=== PATIENT | female | born 1995 | race African-American/Black ===

== ENCOUNTER 2016-12-02 09:53 | Emergency (ER) | payer MEDICAID ==
[2016-12-02 10:07] VITALS: BP 127/80
--- NOTE | 2016-12-02 11:04 | EDM.PDOC ---
ED HPI GENERAL MEDICAL PROBLEM - General Chief Complaint: General Stated Complaint: LOW BACK PAIN Time Seen by Provider: 12/02/16 10:54 Source of Information: Reports: Patient History Limitations: Reports: No Limitations - History of Present Illness INITIAL COMMENTS - FREE TEXT/NARRATIVE: 21-year-old female presents for evaluation and treatment of lower abdominal cramping into the low back. Reports that she first noticed the symptoms about 3 days ago. She reports associated symptoms of increased urination. She denies any fevers, nausea, vomiting, dysuria or vaginal bleeding. Last menstrual period was October 23. She is a . Duration: Day(s): (3) Location: Reports: Abdomen (lower abdomen), Back (lower back) Lower Back Pain Score (Numeric/FACES): 3 - Related Data Allergies Allergy/AdvReac Type Severity Reaction Status Date / Time No Known Allergies Allergy Verified 12/02/16 10:07 Home Meds: Home Meds Amoxicillin 875 mg PO BID #14 tab 12/02/16 [Rx] Past Medical History - Past Health History Medical/Surgical History: Denies Medical/Surgical History Social & Family History - Tobacco Use Smoking Status *Q: Never Smoker - Caffeine Use Caffeine Use: Reports: None - Recreational Drug Use Recreational Drug Use: No ED ROS GENERAL - Review of Systems Review Of Systems: See Below Constitutional: Denies: Fever GI/Abdominal: Reports: Abdominal Pain (lower abdomen cramping). Denies: Nausea , Vomiting : Reports: Frequency, Other (LMP October 23; no vaginal bleeding). Denies: Dysuria Musculoskeletal: Reports: Back Pain (lower back) ED EXAM, GENERAL - Physical Exam Exam: See Below Exam Limited By: No Limitations General Appearance: Alert, WD/WN, No Apparent Distress Respiratory/Chest: No Respiratory Distress Neurological: Alert, Oriented, Normal Cognition Psychiatric: Normal Affect, Normal Mood Skin Exam: Warm, Dry, Normal Color Course - Vital Signs Last Recorded V/S: Last Vital Signs Temp 36.6 C 12/02/16 10:04 Pulse 100 12/02/16 10:04 Resp 16 12/02/16 10:04 BP 127/80 12/02/16 10:04 Pulse Ox 100 12/02/16 10:04 - Orders/Labs/Meds Orders: Active Orders 24 hr Category Date Time Status CULTURE URINE [RM] Stat Lab 12/02/16 11:08 Ordered HCG QUANTITATIVE,SERUM [CHEM] Stat Lab 12/02/16 11:13 Ordered Labs: Laboratory Tests 12/02/16 12/02/16 Range/Units 10:15 10:15 Urine Color Yellow (Yellow) Urine Appearance Slt cloudy H (Clear) Urine pH 6.0 (5.0-8.0) Ur Specific [place] > or = 1.030 (1.005-1.030) Urine Protein 1+ H (Negative) Urine Glucose (UA) Negative (Negative) Urine Ketones Negative (Negative) Urine Occult Blood Negative (Negative) Urine Nitrite Positive H (Negative) Urine Bilirubin Negative (Negative) Urine Urobilinogen 1.0 (0.2-1.0) Ur Leukocyte Esterase 1+ H (Negative) Urine RBC 0-5 (0-5) /hpf Urine WBC 10-20 H (0-5) /hpf Ur Epithelial Cells 5-10 H (0-5) /hpf Urine Bacteria Many H (FEW) /hpf Urine Mucus Few (FEW) /hpf Urine Yeast (Budding) Few H (NOT SEEN) Urine HCG, Qual Positive (NEGATIVE) - Re-Assessments/Exams Free Text/Narrative Re-Assessment/Exam: 12/02/16 11:15 UA has returned with 1+ protein, positive nitrites, leukocytes and many bacteria seen on microscopy. HCG returned positive. I Reviewed the lab results with the patient. Given her last menstrual period was October 23 this puts her due date of 07/30/17; she is a proximally 6 weeks . We decided to go ahead and get an hCG quantitative. Early OB ultrasound to be done outpatient, order placed. She can follow-up with her CASE SUPERVISOR for results of the ultrasound and the quant. Discharge instructions as documented. Departure - Departure Time of Disposition: 11:22 Disposition: Home, Self-Care 01 Condition: Good Clinical Impression: UTI, Urinary tract infectious disease, - Discharge Information Prescriptions: Amoxicillin 875 mg PO BID #14 tab Instructions: First Trimester of , [id number], Care, Urinary Tract Infection, Adult, [id number] Referrals: PCP,None [Primary Care Provider] - Ernesto Garland MD [Physician] - Forms: ED Department Discharge Additional Instructions: take the amoxicillin as prescribed. 1 tab PO bid x 7 days. Take with food. Take [id number] Tylenol as needed for pain relief. Avoid NSAIDs such as ibuprofen, Aleve, aspirin when you're . Call [phone] to schedule your early OB ultrasound. Pleats let them know which CASE SUPERVISOR provider you would like to see so they can send the ultrasound results to them. Follow-up with OB for recheck of your urinary tract infection and for an early OB appointment. Recommend Dr. Garland. Please call [phone] to schedule with him. Recommend starting a vitamin. Please return to the ER if your symptoms change or worsen. - My Orders Last 24 Hours: My Active Orders 12/02/16 11:08 CULTURE URINE [RM] Stat 12/02/16 11:13 HCG QUANTITATIVE,SERUM [CHEM] Stat - Assessment/Plan Last 24 Hours: My Active Orders 12/02/16 11:08 CULTURE URINE [RM] Stat 12/02/16 11:13 HCG QUANTITATIVE,SERUM [CHEM] Stat
== END 2016-12-02 11:35 | disposition home or self-care (01) ==
LOC: JD.ED 09:53
DX: O23.41 Unspecified infection of urinary tract in pregnancy, first trimester (principal); Z3A.01 Less than 8 weeks gestation of pregnancy
CPT/HCPCS: 36415; 81001; 81025; 84702; 87086; 87088; 87186; 99283

== ENCOUNTER 2017-01-06 19:01 | Emergency (ER) | payer MEDICAID ==
[2017-01-06 19:15] VITALS: BP 120/84
--- NOTE | 2017-01-06 20:13 | EDM.PDOC ---
ED HPI GENERAL MEDICAL PROBLEM - General Chief Complaint: Back Pain or Injury Stated Complaint: LEFT BUTTOCKS HURT/NUMBNESS DOWN LEFT LEG Time Seen by Provider: 01/06/17 19:19 Source of Information: Reports: Patient, RN Notes Reviewed - History of Present Illness INITIAL COMMENTS - FREE TEXT/NARRATIVE: 21-year-old female comes in with left low back pain. This started last evening. She was just sitting watching TV, got up to go to the bathroom and had fairly sudden onset of left low back pain with radiation down the back part of her left lower extremity. SHe continues to have discomfort at times quite severe with occasional radiation down the back side of her leg as well. She's never had anything of this nature before. She is about 11 weeks . That has all been going well for her. She did have prior nausea and vomiting but that is now better. She does have voiding frequency but no voiding dysuria. No recent fever or chills. 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 Denies: Dysuria Musculoskeletal: Reports: Back Pain (Left low back) Skin: Reports: No Symptoms Neurological: Reports: Numbness, Difficulty Walking (Mild, she does have increased discomfort with certain types of motion). Denies: Weakness ED EXAM,LOWER BACK PAIN/INJURY - Physical Exam Exam: See Below General Appearance: Alert, Mild Distress Eye Exam: Bilateral Eye: PERRL Throat/Mouth: Normal Inspection, Normal Oropharynx Head: Atraumatic Neck: Supple, Full Range of Motion Respiratory/Chest: No Respiratory Distress, Lungs Clear, Normal Breath Sounds Cardiovascular: Regular Rate, Rhythm GI/Abdominal: Soft, Non-Tender. No: Guarding Back Exam: Paraspinal Tenderness (Mild tenderness left low back). No: Muscle Spasm, Vertebral Tenderness Extremities: Normal Inspection, Other (Mild pain with straight leg raising left lower extremity). No: Leg Pain Neurological: Alert, Normal Mood/Affect, No Motor/Sensory Deficits, Oriented x 3 Skin Exam: Warm, Dry, Normal Color Course - Vital Signs Last Recorded V/S: Last Vital Signs Temp 97.9 F 01/06/17 19:12 Pulse 93 01/06/17 19:12 Resp 18 01/06/17 19:12 BP 120/84 01/06/17 19:12 Pulse Ox 100 01/06/17 19:12 - Orders/Labs/Meds Orders: Active Orders 24 hr Category Date Time Status CULTURE URINE [RM] Stat Lab 01/06/17 20:32 Received Labs: Laboratory Tests 01/06/17 Range/Units 20:50 Urine Color Yellow (Yellow) Urine Appearance Clear (Clear) Urine pH 6.5 (5.0-8.0) Ur Specific [place] 1.025 (1.005-1.030) Urine Protein Negative (Negative) Urine Glucose (UA) Negative (Negative) Urine Ketones 2+ H (Negative) Urine Occult Blood Negative (Negative) Urine Nitrite Negative (Negative) Urine Bilirubin Negative (Negative) Urine Urobilinogen 1.0 (0.2-1.0) Ur Leukocyte Esterase 1+ H (Negative) Urine RBC 0-5 (0-5) /hpf Urine WBC 0-5 (0-5) /hpf Ur Epithelial Cells 0-5 (0-5) /hpf Urine Bacteria Few (FEW) /hpf Urine Mucus Moderate H (FEW) /hpf Meds: Medications Discontinued Medications Generic Name Dose Route Start Last Admin Trade Name Freq PRN Reason Stop Dose Admin Acetaminophen 650 mg 01/06/17 21:04 01/06/17 21:09 Tylenol PO 01/06/17 21:05 650 mg NOW ONE Administration - Re-Assessments/Exams Free Text/Narrative Re-Assessment/Exam: 01/06/17 21:17 UA is 1+ positive for leukocytes but microscopically does not show UTI. Will check a urine culture. We'll not start on antibiotics at this time. We have discussed alternating ice and heat, Tylenol 500 mg 2-3 times daily, consider physical therapy if not much better within the next 12-24 hours. Departure - Departure Time of Disposition: 21:13 Disposition: Home, Self-Care 01 Condition: Fair Clinical Impression: First trimester Back pain Qualifiers: Back pain location: low back pain Chronicity: acute Back pain laterality: left Sciatica presence: with sciatica Sciatica laterality: sciatica of left side Qualified Code(s): M54.42 - Lumbago with sciatica, left side - Discharge Information Referrals: PCP,None [Primary Care Provider] - Forms: ED Department Discharge Additional Instructions: Rest back, no heavy lifting, alternate ice and heat symptomatic relief, you may safely take Tylenol 500 mg 2-3 times daily to help take the edge off of your back discomfort. Start physical therapy if not getting much better over the next 1-2 days. Folow up clinic if symptoms not resolving by early next week. Urine Culture has been done. If that does show bladder infection you will be notified and started on an appropriate antibiotic. Return to ED if symptoms worsening in any way. - My Orders Last 24 Hours: My Active Orders 01/06/17 20:32 CULTURE URINE [RM] Stat - Assessment/Plan Last 24 Hours: My Active Orders 01/06/17 20:32 CULTURE URINE [RM] Stat
[2017-01-06] MEDS ORDERED: Acetaminophen 325 MG Tab PO ONE (21:04)
== END 2017-01-06 21:31 | disposition home or self-care (01) ==
LOC: JD.ED 19:01
DX: O99.89 Other specified diseases and conditions complicating pregnancy, childbirth and the puerperium (principal); M54.42 Lumbago with sciatica, left side; Z3A.11 11 weeks gestation of pregnancy
CPT/HCPCS: 81001; 87086; 99283; A9270

== ENCOUNTER 2017-07-26 03:42 | Inpatient (IN) | payer MEDICAID ==
[2017-07-26] MEDS ORDERED: Misoprostol 25 MCG (1/4 of 100 MCG) Tab ONE (07:20)
[2017-07-26] MEDS ORDERED: Acetaminophen 325 MG Tab PO PRN (07:41)
[2017-07-26] MEDS ORDERED: Sodium Chloride 0.9% 10 ML Syringe FLUSH PRN (07:41)
[2017-07-26] MEDS ORDERED: Ondansetron 4 MG/2 ML SDV IVPUSH PRN (07:41)
[2017-07-26] MEDS ORDERED: Lactated Ringers 1,000 ML IV SCH (07:45)
[2017-07-26] MEDS ORDERED: Misoprostol 100 MCG Tab VAG PRN (07:45)
[2017-07-26] MEDS ORDERED: Oxytocin/Lactated Ringers 10 UNIT/1,000 ML BAG IV SCH ×2 (07:45→14:30)
--- NOTE | 2017-07-26 07:53 | PCM.LDHP ---
L&D History of Present Illness - General Date of Service: 07/26/17 Admit Problem/Dx: Patient Status Order with Admit Dx/Problem 07/26/17 07:41 Patient Status [ADT] Routine Admission Diagnosis/Problem Admission Diagnosis/Problem 39 weeks gestation of Source of Information: Patient History Limitations: Reports: No Limitations - History of Present Illness Introduction:: Pooja Barreto is a 21 year old at 39 weeks 3 days by LMP consistent with 6 week ultrasound. She is scheduled for elective induction of labor today , 07/26/2017, per patient request. She reports that she has had some occasional contractions since her last visit on 07/22/2017 and that several of them were stronger than usual but not regular. Reports good movement. Denies any leaking of fluid or vaginal bleeding. Timing/Duration: Reports: intermittent Location, : Reports: Abdomen, Lower back Quality: Reports: Ache, Pressure Severity: Mild Improves with: Reports: None Worsens with: Reports: None Associated Symptoms: Denies: vaginal bleeding, vaginal discharge, vaginal fluid Present Illness Comments:: Pooja Barreto is a 21 year old at 39 weeks 3 days by LMP consistent with 6 week ultrasound. She has had regular care since 6 weeks [address] Guthrie. Her labs show that she has O+ blood type with negative antibody screen. Her initial hemoglobin on 12/16/2016 was 9.0 and a hematocrit of 29.5 and platelets were 387. She is rubella immune. She is RPR negative, hepatitis B surface antigen negative and HIV negative. Her urine was positive for GBS bacteriuria on 05/03/2017. Her hemoglobin electrophoresis was normal. Her anatomy ultrasound on 04/08/2017 was normal with an anterior placenta. Her one-hour glucose test was normal at 127. Her repeat hematocrit and hemoglobin on 05/12/2017 showed hemoglobin of 10.7 and hematocrit of 31.3. Her platelets were 220. Overall her was uncomplicated but she did have positive GBS bacteriuria, anemia and nausea and vomiting in . 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 Para: 0 Social & Family History - Tobacco Use Smoking Status *Q: Never Smoker Second Hand Smoke Exposure: No - Tobacco Core Measures Tobacco Use/Smoking Within Last 30 Days: No - Caffeine Use Caffeine Use: Reports: None - Alcohol Use Alcohol Use History: No - Recreational Drug Use Recreational Drug Use: No H&P Review of Systems - Review of Systems: Review Of Systems: See Below General: Denies: Fever, Chills, Weakness, Fatigue HEENT: Denies: Eye Pain, Headaches, Hearing Changes, Rhinitis, Post Nasal Drip, Sinus Congestion, Sore Throat, Visual Changes Pulmonary: Denies: Shortness of Breath, Wheezing Cardiovascular: Denies: Chest Pain, Palpitations Gastrointestinal: Denies: Abdominal Pain, Constipation, Diarrhea, Nausea, Vomiting Genitourinary: Denies: Dysuria, Frequency, Burning, Pain, Urgency Musculoskeletal: Reports: Back Pain. Denies: Joint Pain, Muscle Pain Skin: Denies: Rash Psychiatric: Denies: Confusion, Depression, Anxiety Neurological: Denies: Headache Hematologic/Lymphatic: Reports: Anemia L&D Exam - Exam Exam: See Below - OB Specific Contraction Duration (sec): 30-45 Contraction Frequency (min): 10 Contraction Intensity: Mild Movement: Active Heart Tones: Present Heart Tones per Min: 130 (positive 15 x 15 accelerations, no decelerations ) Heart Rate (FHR) Variability: Moderate (6-25 bmp) Presentation: Vertex - Hartman Score Hartman Score Cervix Position: Posterior Hartman Score Consistency: Medium Hartman Score Effacement: 51-70% Hartman Score Dilation: 3-4 cm Hartman Score Infant's Station: -3 Hartman Score Total: 5 - Exam General: Alert, Oriented HEENT: Conjunctiva Clear, EOMI Neck: Supple, Trachea Midline Lungs: Clear to Auscultation, Normal Respiratory Effort Cardiovascular: Regular Rate, Regular Rhythm GI/Abdominal Exam: Soft, Non-Tender, No Distention. No: Guarding, Rebound Genitourinary: Normal external exam, Cervical dilitation (3/70/-3/medium/ posterior) Back Exam: No: CVA Tenderness (L), CVA Tenderness (R) Extremities: Normal Inspection, No Pedal Edema Skin: Warm, Dry, Intact Psychiatric: Alert, Normal Affect, Normal Mood - Problem List (1) 39 weeks gestation of SNOMED Code(s): 56716878 ICD Code: Z3A.39 - 39 WEEKS GESTATION OF Status: Acute Current Visit: Yes (2) GBS bacteriuria SNOMED Code(s): 86296012 ICD Code: R82.71 - BACTERIURIA Status: Acute Current Visit: Yes (3) ancestry requiring population-specific screening for genetic disorder SNOMED Code(s): 16630135, 051460372, 627589209 ICD Code: Z13.79 - ENCNTR FOR OTH SCREENING FOR GENETIC AND CHROMSOML ANOMALIES Status: Acute Current Visit: Yes (4) UTI (urinary tract infection) during SNOMED Code(s): 989431910 ICD Code: O23.40 - UNSP INFECTION OF URINARY TRACT IN , UNSP TRIMESTER Status: Acute Current Visit: Yes Problem List Initiated/Reviewed/Updated: Yes Orders Last 24hrs: Active Orders 24 hr Category Date Time Status Patient Status [ADT] Routine ADT 07/26/17 07:41 Ordered Activity as Tolerated [RC] PFP Care 07/26/17 07:41 Ordered Communication Order [RC] ASDIRECTED Care 07/26/17 07:41 Ordered Communication Order [RC] ASDIRECTED Care 07/26/17 07:45 Ordered Communication Order [RC] ASDIRECTED Care 07/26/17 07:45 Ordered Communication Order [RC] ASDIRECTED Care 07/26/17 07:45 Ordered Heart Tones [RC] ASDIRECTED Care 07/26/17 07:41 Ordered Monitoring [RC] INTERMITTENT Care 07/26/17 07:45 Ordered Notify Provider Vital Signs [RC] PRN Care 07/26/17 07:42 Ordered Notify Provider [RC] ASDIRECTED Care 07/26/17 07:45 Ordered Notify Provider [RC] PFP Care 07/26/17 07:41 Ordered Notify Provider [RC] PRN Care 07/26/17 07:41 Ordered Peripheral IV Care [RC] . DIRECTED Care 07/26/17 07:41 Ordered Pump Management, Intrathecal [RC] ASDIRECTED Care 07/26/17 07:42 Ordered Urinary Catheter Assessment [RC] ASDIRECTED Care 07/26/17 07:41 Ordered Vaginal Exam [RC] ASDIRECTED Care 07/26/17 07:45 Ordered Vital Signs [RC] ASDIRECTED Care 07/26/17 07:45 Ordered Vital Signs [RC] PER UNIT ROUTINE Care 07/26/17 07:41 Ordered Regular Diet [DIET] Diet 07/26/17 Breakfast Ordered CBC W/O DIFF,HEMOGRAM [HEME] Routine Lab 07/26/17 07:41 Ordered Acetaminophen [Tylenol] Med 07/26/17 07:41 Ordered 650 mg PO Q6H PRN Ampicillin 1 gm Med 07/26/17 15:30 Ordered Sodium Chloride 0.9% [Normal Saline] 100 ml IV Q4H Ampicillin 2 gm Med 07/26/17 11:30 Ordered Sodium Chloride 0.9% [Normal Saline] 100 ml IV ONETIME Lactated Ringers [Ringers, Lactated] 1,000 ml Med 07/26/17 07:45 Ordered IV ASDIRECTED Lactated Ringers [Ringers, Lactated] 1,000 ml Med 07/26/17 07:45 Ordered IV ASDIRECTED Misoprostol [Cytotec] Med 07/26/17 07:45 Ordered 25 mcg VAG Q4H PRN Ondansetron [Zofran] Med 07/26/17 07:41 Ordered 4 mg IVPUSH Q4H PRN Oxytocin/Lactated Ringers [Pitocin in LR 10 Units/1,000 Med 07/26/17 07:45 Ordered ML] 10 unit in 1,000 ml IV .CONTINUOUS Sodium Chloride 0.9% [Saline Flush] Med 07/26/17 07:41 Ordered 10 ml FLUSH ASDIRECTED PRN Electronic Heart Tones Ext w TOCO [WOMSER] Oth 07/26/17 07:41 Ordered Routine Electronic Heart Tones Internal [WOMSER] Per Unit Oth 07/26/17 07:41 Ordered Routine Peripheral IV Insertion Adult [OM.PC] Routine Oth 07/26/17 07:41 Ordered Peripheral IV Insertion Adult [OM.PC] Routine Oth 07/26/17 07:45 Ordered Resuscitation Status Routine Resus Stat 07/26/17 07:41 Ordered Assessment/Plan Comment:: Refer to observation for elective induction of labor Start induction of labor with Cytotec 25 mcg vaginally now and every 4 hours Intermittent monitoring while on Cytotec with monitoring for 30 minutes after placement of Cytotec and may ambulate as tolerated with category 1 [address] IV and have Lactated Ringer's at 125 ml/hr if not tolerating regular diet May have regular diet while on Cytotec induction Activity as tolerated May have epidural as desired Plans to breast-feed after delivery Anticipate vaginal delivery unless otherwise indicated
[2017-07-26] MEDS ORDERED: Ampicillin 2 GM in Sodium Chloride 0.9% 100 ML IV ONE (11:30)
[2017-07-26] MEDS: Lactated Ringers 1,000 ML IV SCH ×3 (11:33→20:08)
[2017-07-26] MEDS ORDERED: ePHEDrine 50 MG/ML SDV IVPUSH PRN (14:26)
[2017-07-26] MEDS ORDERED: diphenhydrAMINE 50 MG/ML SDV IVPUSH PRN (14:26)
[2017-07-26] MEDS ORDERED: fentaNYL 100 MCG/2 ML SDV EPIDUR PRN (14:26)
--- NOTE | 2017-07-26 14:26 | PCM.PREANE ---
Preanesthetic Assessment - Procedure Proposed Procedure: SNEHA - Anesthesia/Transfusion/Family Hx Anesthesia History: No Prior Anesthesia Family History of Anesthesia Reaction: No Transfusion History: No Prior Transfusion(s) - Review of Systems General: No Symptoms Pulmonary: No Symptoms Cardiovascular: No Symptoms Gastrointestinal: No Symptoms Neurological: No Symptoms Other: Reports: None - Physical Assessment NPO Status Date: 07/26/17 NPO Status Time: 13:00 Pulse: 85 Respiratory Rate: 18 Blood Pressure: 123/80 Vital Signs: Last Vital Signs Temp 36.6 C 07/26/17 07:41 Pulse 85 07/26/17 08:30 Resp 18 07/26/17 07:41 BP 123/80 07/26/17 08:30 Pulse Ox Height: 1.8 m Weight: 84.822 kg ASA Class: 2 Mental Status: Alert & Oriented x3 Airway Class: Mallampati = 1 Dentition: Reports: Normal Dentition Thyro-Mental Finger Breadths: 3 Mouth Opening Finger Breadths: 3 ROM/Head Extension: Full Lungs: Clear to Auscultation, Normal Respiratory Effort Cardiovascular: Regular Rate, Regular Rhythm - Lab Values: Laboratory Last Values WBC 8.43 K/mm3 (3.98-10.04) 07/26/17 07:55 RBC 4.18 M/mm3 (3.98-5.22) 07/26/17 07:55 Hgb 13.0 gm/L (11.2-15.7) 07/26/17 07:55 Hct 37.6 % (34.1-44.9) 07/26/17 07:55 MCV 90.0 fl (79.4-94.8) 07/26/17 07:55 MCH 31.1 pg (25.6-32.2) 07/26/17 07:55 MCHC 34.6 g/dl (32.2-35.5) 07/26/17 07:55 RDW Std Deviation 43.5 fL (36.4-46.3) 07/26/17 07:55 Plt Count 189 K/mm3 (182-369) 07/26/17 07:55 MPV 10.4 fl (9.4-12.3) 07/26/17 07:55 - Allergies Allergies/Adverse Reactions: Allergies Allergy/AdvReac Type Severity Reaction Status Date / Time No Known Allergies Allergy Verified 01/06/17 19:15 - Blood Blood Available: No Product(s) Available: None - Anesthesia Plan Pre-Op Medication Ordered: None - Acknowledgements Anesthesia Type Planned: Epidural Pt an Appropriate Candidate for the Planned Anesthesia: Yes Alternatives and Risks of Anesthesia Discussed w Pt/Guardian: Yes Pt/Guardian Understands and Agrees with Anesthesia Plan: Yes PreAnesthesia Questionnaire - Past Health History Medical/Surgical History: Denies Medical/Surgical History 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: Patient states sheis currently 11 weeks - SUBSTANCE USE Smoking Status *Q: Never Smoker Tobacco Use Within Last Twelve Months: No Second Hand Smoke Exposure: No Recreational Drug Use History: No - HOME MEDS Home Medications: Home Meds Vits #93/Iron Fum/FA [ Formula Tablet] 1 tab PO DAILY 07/26/17 [History] - CURRENT (IN HOUSE) MEDS Current Meds: Current Medications Acetaminophen (Tylenol) 650 mg PO Q6H PRN PRN Reason: Pain (Mild 1-3) and fever Ampicillin Sodium 1 gm/ Sodium (Chloride) 100 mls @ 200 mls/hr IV Q4H ANGELA Lactated Ringer's (Ringers, Lactated) 1,000 mls @ 100 mls/hr IV ASDIRECTED ANGELA Last Admin: 07/26/17 11:33 Dose: 100 mls/hr Lactated Ringer's (Ringers, Lactated) 1,000 mls @ 40 mls/hr IV ASDIRECTED ANGELA Oxytocin/Lactated Ringer's (Pitocin In Lr 10 Units/1,000 Ml) 10 unit in 1,000 mls @ 100 mls/hr IV .CONTINUOUS ANGELA Oxytocin/Lactated Ringer's (Pitocin In Lr 10 Units/1,000 Ml) 10 unit in 1,000 mls @ 12 mls/hr IV TITRATE ANGELA; Protocol Last Admin: 07/26/17 14:22 Dose: 2 munits/min, 12 mls/hr Misoprostol (Cytotec) 25 mcg VAG Q4H PRN PRN Reason: cervical ripening Last Admin: 07/26/17 08:15 Dose: 25 mcg Ondansetron HCl (Zofran) 4 mg IVPUSH Q4H PRN PRN Reason: Nausea/Vomiting Sodium Chloride (Saline Flush) 10 ml FLUSH ASDIRECTED PRN PRN Reason: Keep Vein Open Discontinued Medications Ampicillin Sodium 2 gm/ Sodium (Chloride) 100 mls @ 200 mls/hr IV ONETIME ONE Stop: 07/26/17 11:59 Last Admin: 07/26/17 11:33 Dose: 200 mls/hr Misoprostol (Cytotec) Confirm Administered Dose 25 mcg .ROUTE .STK-MED ONE Stop: 07/26/17 07:21 Last Admin: 07/26/17 09:59 Dose: Not Given
[2017-07-26] MEDS ORDERED: Bupivacaine/fentaNYL/NS 100 ML Bag EPIDUR SCH (14:30)
[2017-07-26] MEDS: Ampicillin 1 GM in Sodium Chloride 0.9% 100 ML IV SCH ×3 (15:46→23:13)
--- NOTE | 2017-07-26 17:07 | PCM.PNLD ---
Labor Progress Note - VS & Meds Vital Signs: Last Vital Signs Temp 36.6 C 07/26/17 07:41 Pulse 85 07/26/17 14:26 Resp 18 07/26/17 14:26 BP 123/80 07/26/17 14:26 Pulse Ox Active Medications: Current Medications Acetaminophen (Tylenol) 650 mg PO Q6H PRN PRN Reason: Pain (Mild 1-3) and fever Diphenhydramine HCl (Benadryl) 25 mg IVPUSH Q6H PRN PRN Reason: Pruritis Ephedrine Sulfate (Ephedrine Sulfate) 5 mg IVPUSH ASDIRECTED PRN PRN Reason: Hypotension Fentanyl (Sublimaze) 100 mcg EPIDUR Q3H PRN PRN Reason: Pain Fentanyl/Bupivacaine HCl (Fentanyl/Bupivacaine/Ns 2 Mcg-0.125% 100 Ml) 100 ml EPIDUR ASDIRECTED ANGELA Ampicillin Sodium 1 gm/ Sodium (Chloride) 100 mls @ 200 mls/hr IV Q4H ANGELA Last Admin: 07/26/17 15:46 Dose: 200 mls/hr Lactated Ringer's (Ringers, Lactated) 1,000 mls @ 100 mls/hr IV ASDIRECTED ANGELA Last Admin: 07/26/17 11:33 Dose: 100 mls/hr Lactated Ringer's (Ringers, Lactated) 1,000 mls @ 40 mls/hr IV ASDIRECTED ANGELA Oxytocin/Lactated Ringer's (Pitocin In Lr 10 Units/1,000 Ml) 10 unit in 1,000 mls @ 100 mls/hr IV .CONTINUOUS ANGELA Oxytocin/Lactated Ringer's (Pitocin In Lr 10 Units/1,000 Ml) 10 unit in 1,000 mls @ 12 mls/hr IV TITRATE ANGELA; Protocol Last Admin: 07/26/17 14:22 Dose: 2 munits/min, 12 mls/hr Misoprostol (Cytotec) 25 mcg VAG Q4H PRN PRN Reason: cervical ripening Last Admin: 07/26/17 08:15 Dose: 25 mcg Ondansetron HCl (Zofran) 4 mg IVPUSH Q4H PRN PRN Reason: Nausea/Vomiting Sodium Chloride (Saline Flush) 10 ml FLUSH ASDIRECTED PRN PRN Reason: Keep Vein Open Discontinued Medications Ampicillin Sodium 2 gm/ Sodium (Chloride) 100 mls @ 200 mls/hr IV ONETIME ONE Stop: 07/26/17 11:59 Last Admin: 07/26/17 11:33 Dose: 200 mls/hr Misoprostol (Cytotec) Confirm Administered Dose 25 mcg .ROUTE .STK-MED ONE Stop: 07/26/17 07:21 Last Admin: 07/26/17 09:59 Dose: Not Given - Uterine Contractions Uterine Monitoring Mode: External [place] Contraction Frequency (min): 2-3 Contraction Duration (sec): 45-60 Contraction Intensity: Moderate Uterine Resting Tone: Soft - Monitoring Monitor Mode: Doppler/Auscultation Heart Rate (FHR) Baseline: 125 Heart Rate (FHR) Variability: Moderate (6-25 bmp) Accelerations: Present, 15x15 Decelerations: None Strip Review: Category I - Vaginal Exam Dilation (cm): 4 Effacement (Percent): 80 Station: -2 Cervical Position: Midposition Sterile Vaginal Exam Performed By: Wally Guthrie - Labor Progress (Free Text) Labor Progress: Continue pitocin for augmentation of labor Continue ampicillin for GBS prophylaxis with history of GBS bacteriuria Patient making good progress with induction Anticipate vaginal delivery unless otherwise indicated. Wally Guthrie MD 5:07 PM 07/26/2017
[2017-07-27] MEDS ORDERED: Nalbuphine 20 MG/1 ML Amp IVPUSH PRN (00:24)
[2017-07-27] MEDS: Ampicillin 1 GM in Sodium Chloride 0.9% 100 ML IV SCH (03:25)
[2017-07-27] MEDS ORDERED: Lidocaine 1% 50 ML MDV ONE (03:44)
[2017-07-27] MEDS ORDERED: Docusate Sodium 100 MG Cap PO PRN (04:42)
[2017-07-27] MEDS ORDERED: Lanolin 100% Cream 7 GM Tube TOP PRN (04:42)
[2017-07-27] MEDS ORDERED: Hydrocortisone Acetate 25 MG Supp RECTAL PRN (04:42)
[2017-07-27] MEDS ORDERED: Witch Hazel Medicated Pads 100/Jar TOP PRN (04:42)
[2017-07-27] MEDS ORDERED: Acetaminophen 325 MG Tab PO PRN (04:42)
[2017-07-27] MEDS ORDERED: Benzocaine/Menthol 20%-0.5% Spray 56 GM Canister TOP PRN (04:42)
--- NOTE | 2017-07-27 04:42 | PCM.DEL ---
L & D Note - General Info Date of Service: 07/27/17 Mother's Due Date: 07/30/17 - Delivery Note Labor: Augmented by Oxytocin, Induced by Oxytocin Cervical Ripening Method: Misoprostil Delivery Outcome: Livebirth Infant Delivery Method: Spontaneous Vaginal Delivery-Single Presentation: Left Occiput Anterior (COLIN) Nuchal Cord: None Anesthesia Type: Local Anesthetic: Lidocaine (Xylocaine) 1% Plain Local Anesthetic Volume: Other (20 mL) Amniotic Fluid Description: Clear Episiotomy Type: None Laceration: 1st Degree (periurethral), 2nd Degree (midline) Suture type: Vicryl Suture size: other (3-0 Vicryl for second-degree midline, 4-0 Vicryl for right first-degree periurethral) Placenta: Intact Cord: 3 Vessels Estimated Blood Loss: 350 Resuscitation Needed: No [place]: Stimulated, Warmed, [place] Used Provider: Wally Guthrie Score 1 min: 8 Score 5 min: 9 Second Stage Interventions: Reports: Pushing Effectively, Pushing, Pulls Own Legs Back Delivery Comments (Free Text/Narrative):: Stage I: Pooja Barreto was admitted for elective induction of labor. On admission her cervix was dilated to 3 cm. She was GBS positive. She is given 1 dose of Cytotec for cervical ripening. After the first dose she was khadijah every 1-2 minutes after 4 hours and was transitioned to Pitocin for continued induction of labor. She was started on ampicillin for GBS positive status. She received a total of 4 doses of ampicillin. She had spontaneous rupture membranes with clear fluid. She progressed to complete and pushing. Stage II: On 07/27/2017 she had a normal vaginal delivery of a live female infant at 0343. Apgars of 8 and 9. Weight of 2850 g (6 lbs 5 oz). Length of 20 inches. There was no nuchal cord. was delivered in COLIN position. The cord was doubly clamped and cut by father of . was placed on mother's abdomen. Stage III: She had a spontaneous delivery of an intact placenta in Praveen presentation. Three vessel cord. She was given pitocin and fundal massage. She had a second-degree midline laceration that was repaired with 3-0 Vicryl in normal fashion. She had a right periurethral laceration that was repaired with 4-0 Vicryl. She had a left periurethral laceration that was smaller and hemostatic than the right side and not repaired.. Mom and baby were stable to recovery. EBL of 350 mL. Wally Guthrie MD 4:42 AM 07/27/2017 - Patient Data Vitals - Most Recent: Last Vital Signs Temp 36.6 C 07/26/17 07:41 Pulse 85 07/26/17 14:26 Resp 18 07/26/17 14:26 BP 123/80 07/26/17 14:26 Pulse Ox Weight - Most Recent: 84.822 kg I&O - Last 24 Hours: Intake & Output 07/26/17 07/26/17 07/27/17 14:59 22:59 06:59 Intake Total 1999 Balance 1999 Lab Results Last 24 Hours: Laboratory Results - last 24 hr 07/26/17 Range/Units 07:55 WBC 8.43 (3.98-10.04) K/mm3 RBC 4.18 (3.98-5.22) M/mm3 Hgb 13.0 (11.2-15.7) gm/L Hct 37.6 (34.1-44.9) % MCV 90.0 (79.4-94.8) fl MCH 31.1 (25.6-32.2) pg MCHC 34.6 (32.2-35.5) g/dl RDW Std Deviation 43.5 (36.4-46.3) fL Plt Count 189 (182-369) K/mm3 MPV 10.4 (9.4-12.3) fl Med Orders - Current: Current Medications Acetaminophen (Tylenol) 650 mg PO Q6H PRN PRN Reason: Pain (Mild 1-3) and fever Diphenhydramine HCl (Benadryl) 25 mg IVPUSH Q6H PRN PRN Reason: Pruritis Ephedrine Sulfate (Ephedrine Sulfate) 5 mg IVPUSH ASDIRECTED PRN PRN Reason: Hypotension Fentanyl (Sublimaze) 100 mcg EPIDUR Q3H PRN PRN Reason: Pain Fentanyl/Bupivacaine HCl (Fentanyl/Bupivacaine/Ns 2 Mcg-0.125% 100 Ml) 100 ml EPIDUR ASDIRECTED ANGELA Ampicillin Sodium 1 gm/ Sodium (Chloride) 100 mls @ 200 mls/hr IV Q4H ANGELA Last Admin: 07/27/17 03:25 Dose: 200 mls/hr Lactated Ringer's (Ringers, Lactated) 1,000 mls @ 100 mls/hr IV ASDIRECTED ANGELA Last Admin: 07/26/17 20:08 Dose: 100 mls/hr Lactated Ringer's (Ringers, Lactated) 1,000 mls @ 40 mls/hr IV ASDIRECTED ANGELA Oxytocin/Lactated Ringer's (Pitocin In Lr 10 Units/1,000 Ml) 10 unit in 1,000 mls @ 100 mls/hr IV .CONTINUOUS ANGELA Oxytocin/Lactated Ringer's (Pitocin In Lr 10 Units/1,000 Ml) 10 unit in 1,000 mls @ 12 mls/hr IV TITRATE ANGELA; Protocol Last Titration: 07/26/17 21:14 Dose: 9 munits/min, 54 mls/hr Misoprostol (Cytotec) 25 mcg VAG Q4H PRN PRN Reason: cervical ripening Last Admin: 07/26/17 08:15 Dose: 25 mcg Nalbuphine HCl (Nubain) 10 mg IVPUSH Q3H PRN PRN Reason: Pain Last Admin: 07/27/17 00:42 Dose: 10 mg Ondansetron HCl (Zofran) 4 mg IVPUSH Q4H PRN PRN Reason: Nausea/Vomiting Sodium Chloride (Saline Flush) 10 ml FLUSH ASDIRECTED PRN PRN Reason: Keep Vein Open Discontinued Medications Ampicillin Sodium 2 gm/ Sodium (Chloride) 100 mls @ 200 mls/hr IV ONETIME ONE Stop: 07/26/17 11:59 Last Admin: 07/26/17 11:33 Dose: 200 mls/hr Lidocaine HCl (Xylocaine 1%) Confirm Administered Dose 50 ml .ROUTE .STK-MED ONE Stop: 07/27/17 03:45 Last Admin: 07/27/17 03:53 Dose: 50 ml Misoprostol (Cytotec) Confirm Administered Dose 25 mcg .ROUTE .STK-MED ONE Stop: 07/26/17 07:21 Last Admin: 07/26/17 09:59 Dose: Not Given - Problem List & Annotations (1) 39 weeks gestation of SNOMED Code(s): 43481925 Code(s): Z3A.39 - 39 WEEKS GESTATION OF Status: Acute Current Visit: Yes (2) GBS bacteriuria SNOMED Code(s): 11383453 Code(s): R82.71 - BACTERIURIA Status: Acute Current Visit: Yes (3) ancestry requiring population-specific screening for genetic disorder SNOMED Code(s): 05009112, 473326271, 934217724 Code(s): Z13.79 - ENCNTR FOR OTH SCREENING FOR GENETIC AND CHROMSOML ANOMALIES Status: Acute Current Visit: Yes (4) UTI (urinary tract infection) during SNOMED Code(s): 687922192 Code(s): O23.40 - UNSP INFECTION OF URINARY TRACT IN , UNSP TRIMESTER Status: Acute Current Visit: Yes (5) Vaginal delivery SNOMED Code(s): 789690286 Code(s): O80 - ENCOUNTER FOR FULL-TERM UNCOMPLICATED DELIVERY Status: Acute Current Visit: Yes (6) Second degree laceration of perineum, delivered, current hospitalization SNOMED Code(s): 128416753 Code(s): O70.1 - SECOND DEGREE PERINEAL LACERATION DURING DELIVERY Status: Acute Current Visit: Yes (7) First degree laceration of perineum, delivered, current hospitalization SNOMED Code(s): 164690015 Code(s): O70.0 - FIRST DEGREE PERINEAL LACERATION DURING DELIVERY Status: Acute Current Visit: Yes - Problem List Review Problem List Initiated/Reviewed/Updated: Yes - My Orders Last 24 Hours: My Active Orders 07/26/17 07:41 Patient Status [ADT] Routine Activity as Tolerated [RC] PFP Communication Order [RC] ASDIRECTED Heart Tones [RC] ASDIRECTED Notify Provider [RC] PFP Notify Provider [RC] PRN Peripheral IV Care [RC] . DIRECTED Urinary Catheter Assessment [RC] ASDIRECTED Vital Signs [RC] PER UNIT ROUTINE Acetaminophen [Tylenol] 650 mg PO Q6H PRN Ondansetron [Zofran] 4 mg IVPUSH Q4H PRN Sodium Chloride 0.9% [Saline Flush] 10 ml FLUSH ASDIRECTED PRN Electronic Heart Tones Ext w TOCO [WOMSER] Routine Electronic Heart Tones Internal [WOMSER] Per Unit Routine Peripheral IV Insertion Adult [OM.PC] Routine Resuscitation Status Routine 07/26/17 07:42 Notify Provider Vital Signs [RC] PRN Pump Management, Intrathecal [RC] ASDIRECTED 07/26/17 07:45 Communication Order [RC] ASDIRECTED Communication Order [RC] ASDIRECTED Communication Order [RC] ASDIRECTED Monitoring [RC] INTERMITTENT Notify Provider [RC] ASDIRECTED Vaginal Exam [RC] ASDIRECTED Lactated Ringers [Ringers, Lactated] 1,000 ml IV ASDIRECTED Lactated Ringers [Ringers, Lactated] 1,000 ml IV ASDIRECTED Misoprostol [Cytotec] 25 mcg VAG Q4H PRN Oxytocin/Lactated Ringers [Pitocin in LR 10 Units/1,000 ML] 10 unit in 1,000 ml IV .CONTINUOUS Peripheral IV Insertion Adult [OM.PC] Routine 07/26/17 14:30 Oxytocin/Lactated Ringers [Pitocin in LR 10 Units/1,000 ML] 10 unit in 1,000 ml IV TITRATE 07/26/17 15:30 Ampicillin 1 gm Sodium Chloride 0.9% [Normal Saline] 100 ml IV Q4H 07/26/17 Breakfast Regular Diet [DIET] 07/27/17 00:24 Nalbuphine [Nubain] 10 mg IVPUSH Q3H PRN 07/27/17 04:32 Patient Status Manage Transfer [TRANSFER] Routine - Plan Plan:: Admit to inpatient following normal spontaneous vaginal delivery Continue Pitocin and lactated Ringer's per unit protocol following delivery of the placenta Regular diet as tolerated Assist with breast-feeding as needed Routine vitals Monitor lochia Anticipate discharge home on day #1 or #2 Wally Guthrie M.D. 4:45 AM 07/27/2017
[2017-07-27] MEDS ORDERED: Oxytocin/Lactated Ringers 10 UNIT/1,000 ML BAG IV SCH (04:45)
[2017-07-27] MEDS ORDERED: Lactated Ringers 1,000 ML IV SCH (04:45)
[2017-07-27] MEDS: Ibuprofen 600 MG Tab PO PRN ×2 (08:30→20:20)
[2017-07-27] MEDS: Prenatal Multivitamin with Calcium/Folic Acid/Iron Tab PO SCH (08:34)
[2017-07-27] MEDS: Ferrous Sulfate 325 MG Tab PO SCH (08:34)
--- NOTE | 2017-07-28 09:22 | PCM.SN ---
- Free Text/Narrative Note: Post Progress Note PPD # 1 Subjective: Doing well overall. Ambulating without difficulty. Lochia minimal. Voiding without difficulty. Tolerating regular diet without nausea or vomiting. Pain minimal and controlled with oral medications. Breast feeding with minimal difficulty. Objective: Vitals: Vital Signs - 24 hr 07/27/17 07/27/17 07/28/17 11:31 19:53 04:11 Temperature 37.1 C 36.7 C 36.6 C Pulse, 95 97 90 Peripheral Respiratory 14 16 16 Rate Blood Pressure 111/63 120/68 111/66 O2 Sat by Pulse 97 99 98 Oximetry Physical Exam General: Alert and oriented, no acute distress Lungs: Clear to auscultation bilaterally Heart: Regular rate and rhythm Abdomen: Soft, minimal appropriate tenderness, non-distended, fundus midline, nontender, and below the umbilicus Extremities: Trace edema in bilateral lower extremities to mid shins ASSESSMENT: 21-year-old female G 1 P 1001 s/p normal vaginal delivery PPD #1, complicated by GBS bacteriuria, anemia and nausea and vomiting in early PLAN: Doing well Breast feeding with minimal difficulty. Assist as needed Lochia minimal. Continue to monitor for appropriate lochia. Continue routine care Anticipate discharge home today Wally Guthrie MD 9:23 AM 07/28/2017
--- NOTE | 2017-07-28 09:31 | PCM.DCSUM1 ---
Discharge Summary - Hospital Course Free Text/Narrative:: Stage I: Pooja Barreto was admitted for elective induction of labor. On admission her cervix was dilated to 3 cm. She was GBS positive. She is given 1 dose of Cytotec for cervical ripening. After the first dose she was khadijah every 1-2 minutes after 4 hours and was transitioned to Pitocin for continued induction of labor. She was started on ampicillin for GBS positive status. She received a total of 4 doses of ampicillin. She had spontaneous rupture membranes with clear fluid. She progressed to complete and pushing. Stage II: On 07/27/2017 she had a normal vaginal delivery of a live female infant at 0343. Apgars of 8 and 9. Weight of 2850 g (6 lbs 5 oz). Length of 20 inches. There was no nuchal cord. was delivered in COLIN position. The cord was doubly clamped and cut by father of infant. Infant was placed on mother's abdomen. Stage III: She had a spontaneous delivery of an intact placenta in Praveen presentation. Three vessel cord. She was given pitocin and fundal massage. She had a second-degree midline laceration that was repaired with 3-0 Vicryl in normal fashion. She had a right periurethral laceration that was repaired with 4-0 Vicryl. She had a left periurethral laceration that was smaller and hemostatic than the right side and not repaired.. Mom and baby were stable to recovery. EBL of 350 mL. HPI Initial Comments: Stage I: Pooja Barreto was admitted for elective induction of labor. On admission her cervix was dilated to 3 cm. She was GBS positive. She is given 1 dose of Cytotec for cervical ripening. After the first dose she was khadijah every 1-2 minutes after 4 hours and was transitioned to Pitocin for continued induction of labor. She was started on ampicillin for GBS positive status. She received a total of 4 doses of ampicillin. She had spontaneous rupture membranes with clear fluid. She progressed to complete and pushing. Stage II: On 07/27/2017 she had a normal vaginal delivery of a live female at 0343. Apgars of 8 and 9. Weight of 2850 g (6 lbs 5 oz). Length of 20 inches. There was no nuchal cord. Infant was delivered in COLIN position. The cord was doubly clamped and cut by father of . was placed on mother's abdomen. Stage III: She had a spontaneous delivery of an intact placenta in Praveen presentation. Three vessel cord. She was given pitocin and fundal massage. She had a second-degree midline laceration that was repaired with 3-0 Vicryl in normal fashion. She had a right periurethral laceration that was repaired with 4-0 Vicryl. She had a left periurethral laceration that was smaller and hemostatic than the right side and not repaired.. Mom and baby were stable to recovery. EBL of 350 mL. Brief History: Stage I: Pooja Barreto was admitted for elective induction of labor. On admission her cervix was dilated to 3 cm. She was GBS positive. She is given 1 dose of Cytotec for cervical ripening. After the first dose she was khadijah every 1-2 minutes after 4 hours and was transitioned to Pitocin for continued induction of labor. She was started on ampicillin for GBS positive status. She received a total of 4 doses of ampicillin. She had spontaneous rupture membranes with clear fluid. She progressed to complete and pushing. Stage II: On 07/27/2017 she had a normal vaginal delivery of a live female at 0343. Apgars of 8 and 9. Weight of 2850 g (6 lbs 5 oz). Length of 20 inches. There was no nuchal cord. was delivered in COLIN position. The cord was doubly clamped and cut by father of infant. Infant was placed on mother's abdomen. Stage III: She had a spontaneous delivery of an intact placenta in Praveen presentation. Three vessel cord. She was given pitocin and fundal massage. She had a second-degree midline laceration that was repaired with 3-0 Vicryl in normal fashion. She had a right periurethral laceration that was repaired with 4-0 Vicryl. She had a left periurethral laceration that was smaller and hemostatic than the right side and not repaired.. Mom and baby were stable to recovery. EBL of 350 mL. - Discharge Data Discharge Date: 07/28/17 Discharge Disposition: Home, Self-Care 01 Condition: Good - Discharge Diagnosis/Problem(s) (1) 39 weeks gestation of SNOMED Code(s): 54368563 ICD Code: Z3A.39 - 39 WEEKS GESTATION OF Status: Acute Current Visit: Yes (2) GBS bacteriuria SNOMED Code(s): 13240862 ICD Code: R82.71 - BACTERIURIA Status: Acute Current Visit: Yes (3) ancestry requiring population-specific screening for genetic disorder SNOMED Code(s): 67632665, 784237901, 643801127 ICD Code: Z13.79 - ENCNTR FOR OTH SCREENING FOR GENETIC AND CHROMSOML ANOMALIES Status: Acute Current Visit: Yes (4) UTI (urinary tract infection) during SNOMED Code(s): 038375519 ICD Code: O23.40 - UNSP INFECTION OF URINARY TRACT IN , UNSP TRIMESTER Status: Acute Current Visit: Yes (5) Vaginal delivery SNOMED Code(s): 564249973 ICD Code: O80 - ENCOUNTER FOR FULL-TERM UNCOMPLICATED DELIVERY Status: Acute Current Visit: Yes (6) Second degree laceration of perineum, delivered, current hospitalization SNOMED Code(s): 386620601 ICD Code: O70.1 - SECOND DEGREE PERINEAL LACERATION DURING DELIVERY Status : Acute Current Visit: Yes (7) First degree laceration of perineum, delivered, current hospitalization SNOMED Code(s): 562456814 ICD Code: O70.0 - FIRST DEGREE PERINEAL LACERATION DURING DELIVERY Status: Acute Current Visit: Yes - Patient Summary/Data Complications: None Consults: None Hospital Course: Pooja Barreto was admitted for elective induction of labor. On admission her cervix was dilated to 3 cm. She was GBS positive. She was given 1 dose of Cytotec for cervical ripening. After the first dose she was khadijah every 1 -2 minutes after 4 hours and was transitioned to Pitocin for continued induction of labor. She was started on ampicillin for GBS positive status. She received a total of 4 doses of ampicillin. She had spontaneous rupture membranes with clear fluid. She progressed to complete and pushing. On 2017 she had a normal vaginal delivery of a live female infant at 0343. Apgars of 8 & 9. Weight of 2850 g (6 lbs. 5 oz.). Her course was uneventful. Her pain was well controlled and she had minimal lochia. She was ambulating, tolerating a regular diet and voiding normally. She was breast feeding. She was afebrile and her hematocrit was 37.6 on admission. She desired to be discharged home on the morning of PPD #1. Her blood type is O+. - Patient Instructions Diet: Regular Diet as Tolerated Activity: As Tolerated Activity, Other: Nothing in the vagina for 6 weeks. Driving: May Drive Today Showering/Bathing: May Shower Notify Provider of: Fever, Increased Pain, Swelling and Redness, Drainage, Nausea and/or Vomiting Other/Special Instructions: Please call our office if you have heavy vaginal bleeding enough to soak a pad in less than an hour for several hours. - Discharge Plan Home Medications: Home Meds Vits #93/Iron Fum/FA [ Formula Tablet] 1 tab PO DAILY 07/26/17 [History] Acetaminophen [Tylenol] 650 mg PO Q6H PRN tablet 07/28/17 [Rx] Benzocaine/Menthol [Dermoplast Pain Relief [place]] 1 spray TOP ASDIRECTED PRN canister 07/28/17 [Rx] Docusate Sodium [Colace] 100 mg PO BID PRN cap 07/28/17 [Rx] Ferrous Sulfate 325 mg PO WITHBREAKFAST tablet 07/28/17 [Rx] Hydrocortisone Acetate [Anucort-HC] 25 mg RECTAL BID PRN supp 07/28/17 [Rx] Ibuprofen [IJD: Ibuprofen] 600 mg PO Q6H PRN tablet 07/28/17 [Rx] Lanolin [Lansinoh HPA] 1 applic TOP ASDIRECTED PRN tube 07/28/17 [Rx] Patient Handouts: Home Care Instructions for Mom, Vaginal Delivery, Care After , Care of a Perineal Tear Referrals: Wally Guthrie MD [Primary Care Provider] - (Follow-up in 1-2 weeks for visit.) - Discharge Summary/Plan Comment DC Time >30 min.: No - Patient Data Vitals - Most Recent: Last Vital Signs Temp 36.6 C 07/28/17 04:11 Pulse 90 07/28/17 04:11 Resp 16 07/28/17 04:11 BP 111/66 07/28/17 04:11 Pulse Ox 98 07/28/17 04:11 Weight - Most Recent: 84.822 kg I&O - Last 24 hours: Intake & Output 07/27/17 07/28/17 07/28/17 22:59 06:59 14:59 Intake Total 480 Balance 480 Med Orders - Current: Current Medications Acetaminophen (Tylenol) 650 mg PO Q6H PRN PRN Reason: mild pain or fever Benzocaine/Menthol (Dermoplast Pain Relief [place]) 0 gm TOP ASDIRECTED PRN PRN Reason: Perineal Comfort Measure Last Admin: 07/27/17 08:35 Dose: 1 spray Docusate Sodium (Colace) 100 mg PO BID PRN PRN Reason: Constipation Emollient Ointment (Lansinoh Hpa) 0 gm TOP ASDIRECTED PRN PRN Reason: Sore Nipples Ferrous Sulfate (Ferrous Sulfate) 325 mg PO WITHBREAKFAST [facility] [place] Last Admin: 07/27/17 08:34 Dose: 325 mg Hydrocortisone Acetate (Anucort-Hc) 25 mg RECTAL BID PRN PRN Reason: Hemorrhoid pain Lactated Ringer's (Ringers, Lactated) 1,000 mls @ 125 mls/hr IV ASDIRECTED ANGELA Oxytocin/Lactated Ringer's (Pitocin In Lr 10 Units/1,000 Ml) 10 unit in 1,000 mls @ 100 mls/hr IV TITRATE ANGELA; Protocol Ibuprofen (Motrin) 600 mg PO Q6H PRN PRN Reason: Mild pain or fever Last Admin: 07/27/17 20:20 Dose: 600 mg Prenat Multivit/Interventional Tech/Iron/Folic Ac ( Plus Iron) 1 each PO DAILY [facility] [place] Last Admin: 07/27/17 08:34 Dose: 1 each Witch Jeniffer (Tucks) 1 pad TOP ASDIRECTED PRN PRN Reason: Hemorrhoid pain Last Admin: 07/27/17 08:35 Dose: 1 pad Discontinued Medications Acetaminophen (Tylenol) 650 mg PO Q6H PRN PRN Reason: Pain (Mild 1-3) and fever Diphenhydramine HCl (Benadryl) 25 mg IVPUSH Q6H PRN PRN Reason: Pruritis Ephedrine Sulfate (Ephedrine Sulfate) 5 mg IVPUSH ASDIRECTED PRN PRN Reason: Hypotension Fentanyl (Sublimaze) 100 mcg EPIDUR Q3H PRN PRN Reason: Pain Fentanyl/Bupivacaine HCl (Fentanyl/Bupivacaine/Ns 2 Mcg-0.125% 100 Ml) 100 ml EPIDUR ASDIRECTED ANGELA Ampicillin Sodium 2 gm/ Sodium (Chloride) 100 mls @ 200 mls/hr IV ONETIME ONE Stop: 04/30/18 11:59 Last Admin: 07/26/17 11:33 Dose: 200 mls/hr Ampicillin Sodium 1 gm/ Sodium (Chloride) 100 mls @ 200 mls/hr IV Q4H ANGELA Last Admin: 07/27/17 03:25 Dose: 200 mls/hr Lactated Ringer's (Ringers, Lactated) 1,000 mls @ 100 mls/hr IV ASDIRECTED ANGELA Last Admin: 07/26/17 20:08 Dose: 100 mls/hr Lactated Ringer's (Ringers, Lactated) 1,000 mls @ 40 mls/hr IV ASDIRECTED ANGELA Oxytocin/Lactated Ringer's (Pitocin In Lr 10 Units/1,000 Ml) 10 unit in 1,000 mls @ 100 mls/hr IV .CONTINUOUS ANGELA Oxytocin/Lactated Ringer's (Pitocin In Lr 10 Units/1,000 Ml) 10 unit in 1,000 mls @ 12 mls/hr IV TITRATE ANGELA; Protocol Last Titration: 07/26/17 21:14 Dose: 9 munits/min, 54 mls/hr Lidocaine HCl (Xylocaine 1%) Confirm Administered Dose 50 ml .ROUTE .STK-MED ONE Stop: 07/27/17 03:45 Last Admin: 07/27/17 03:53 Dose: 50 ml Misoprostol (Cytotec) Confirm Administered Dose 25 mcg .ROUTE .STK-MED ONE Stop: 07/26/17 07:21 Last Admin: 07/26/17 09:59 Dose: Not Given Misoprostol (Cytotec) 25 mcg VAG Q4H PRN PRN Reason: cervical ripening Last Admin: 07/26/17 08:15 Dose: 25 mcg Nalbuphine HCl (Nubain) 10 mg IVPUSH Q3H PRN PRN Reason: Pain Last Admin: 07/27/17 00:42 Dose: 10 mg Ondansetron HCl (Zofran) 4 mg IVPUSH Q4H PRN PRN Reason: Nausea/Vomiting Sodium Chloride (Saline Flush) 10 ml FLUSH ASDIRECTED PRN PRN Reason: Keep Vein Open
[2017-07-28] MEDS: Prenatal Multivitamin with Calcium/Folic Acid/Iron Tab PO SCH (10:27)
[2017-07-28] MEDS: Ferrous Sulfate 325 MG Tab PO SCH (10:30)
[2017-07-28 10:31] VITALS: BP 112/73
== END 2017-07-28 14:15 | disposition home or self-care (01) | DRG 775 ==
LOC: JD.OB 03:42 → OBSVTOIN 07-27 03:42 → JD.OB 07-27 03:43
PROVIDERS: ADMIT Obstetrics & Gynecology; ATTEND Obstetrics & Gynecology
PROC: 0KQM0ZZ Repair Perineum Muscle, Open Approach (ICD-10-PCS; principal; 2017-07-27)
PROC: 3E033VJ Introduction of Other Hormone into Peripheral Vein, Percutaneous Approach (ICD-10-PCS; principal; 2017-07-27)
PROC: 3E0P7VZ Introduction of Hormone into Female Reproductive, Via Natural or Artificial Opening (ICD-10-PCS; principal; 2017-07-27)
PROC: 10E0XZZ Delivery of Products of Conception, External Approach (ICD-10-PCS; principal; 2017-07-27)
PROC: 0UQMXZZ Repair Vulva, External Approach (ICD-10-PCS; principal; 2017-07-27)
DX: O99.824 Streptococcus B carrier state complicating childbirth (principal); O71.82 Other specified trauma to perineum and vulva; O70.1 Second degree perineal laceration during delivery; Z3A.39 39 weeks gestation of pregnancy; Z37.0 Single live birth
CPT/HCPCS: 36415; 59025; 59300; 59409; 85027; A9270-GY; J0290; J2300; J2590; J7030; J7120

== ENCOUNTER 2018-04-22 17:30 | Emergency (ER) | payer MEDICAID ==
[2018-04-22 18:12] VITALS: BP 114/63
--- NOTE | 2018-04-22 19:22 | EDM.PDOC ---
ED HPI GENERAL MEDICAL PROBLEM - General Chief Complaint: Head Injury Stated Complaint: 20 WEEKS PREG FALL HEAD INJURY Time Seen by Provider: 04/22/18 18:49 Source of Information: Reports: Patient, RN Notes Reviewed - History of Present Illness INITIAL COMMENTS - FREE TEXT/NARRATIVE: 22 year old female 20 wks slipped and fell backward last evening in kitchen. Today feels mildly dizzy, mild upper back pain. She just came from OB where they did moniter her for about an hr. Heart tones were good, no apparent contractions or concerning findings at OB. She currently has no abd or pelvic pain, no spotting or bleeding. No Downs or neck pain. 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 BUILDING ADMIN History: Patient states sheis currently 20 weeks Social & Family History - Family History Family Medical History: Noncontributory - Tobacco Use Smoking Status *Q: Never Smoker Second Hand Smoke Exposure: No - Caffeine Use Caffeine Use: Reports: None - Recreational Drug Use Recreational Drug Use: No ED ROS GENERAL - Review of Systems Review Of Systems: See Below HEENT: Denies: Ear Discharge, Vertigo Respiratory: Denies: Shortness of Breath Cardiovascular: Denies: Chest Pain GI/Abdominal: Denies: Abdominal Pain, Nausea, Vomiting Musculoskeletal: Reports: Back Pain Neurological: Reports: Dizziness (mild) ED EXAM, HEAD INJURY - Physical Exam Exam: See Below General Appearance: Alert, No Apparent Distress Head: Atraumatic. No: Scalp Hematoma, Scalp Tenderness Eyes: Bilateral Eye: Normal Inspection Ears: Normal External Exam Nose: Normal Inspection Throat/Mouth: Normal Inspection Neck: Non-Tender Respiratory: No Respiratory Distress, Lungs Clear, Normal Breath Sounds Cardiovascular: Regular Rate, Rhythm GI/Abdominal Exam: Soft, Non-Tender. No: Guarding Back Exam: Other (no bruising or swelling visible). No: Paraspinal Tenderness, Vertebral Tenderness Extremities: Normal Inspection Neurologic: No Motor/Sensory Deficits, Normal Mood/Affect, Oriented x 3 Skin: Normal Color, Warm/Dry Course - Vital Signs Last Recorded V/S: Last Vital Signs Temp 98.5 F 04/22/18 18:09 Pulse 79 04/22/18 18:09 Resp 16 04/22/18 18:09 BP 114/63 04/22/18 18:09 Pulse Ox 100 04/22/18 18:09 Orthostatic Blood Pressure [ 88/63 Standing] Orthostatic Blood Pressure [ 99/62 Sitting] Orthostatic Blood Pressure [ 108/58 Supine] Departure - Departure Time of Disposition: 19:21 Disposition: Home, Self-Care 01 Condition: Fair Clinical Impression: Second trimester Fall Qualifiers: Encounter type: initial encounter Qualified Code(s): W19.XXXA - Unspecified fall, initial encounter Head concussion Qualifiers: Encounter type: initial encounter Loss of consciousness presence/duration: without LOC Qualified Code(s): S06.0X0A - Concussion without loss of consciousness, initial encounter - Discharge Information Instructions: Concussion, Adult, [id number], Second Trimester of , [id number] Referrals: PCP,None [Primary Care Provider] - Forms: ED Department Discharge Additional Instructions: Rest and time is the treatment for concussion, avoid any exertional activity for at least a week Tylenol every 6-8 hours if needed for severe discomfort, follow-up clinic with your regular appointments as planned, return to ED as needed if symptoms worsening in any way.
== END 2018-04-22 19:28 | disposition home or self-care (01) ==
LOC: JD.ED 17:30
DX: O9A.212 Injury, poisoning and certain other consequences of external causes complicating pregnancy, second trimester (principal); S06.0X0A Concussion without loss of consciousness, initial encounter; M54.6 Pain in thoracic spine; W01.0XXA Fall on same level from slipping, tripping and stumbling without subsequent striking against object, initial encounter; Y92.000 Kitchen of unspecified non-institutional (private) residence as the place of occurrence of the external cause; Z3A.20 20 weeks gestation of pregnancy
CPT/HCPCS: 99283; 99284

== ENCOUNTER 2018-08-29 07:19 | Inpatient (IN) | payer MEDICAID ==
[2018-08-29] MEDS ORDERED: Sodium Chloride 0.9% 10 ML Syringe FLUSH PRN (07:25)
[2018-08-29] MEDS ORDERED: Acetaminophen 325 MG Tab PO PRN ×2 (07:25→20:21)
[2018-08-29] MEDS ORDERED: Nalbuphine 20 MG/ML 1 ML Syringe IVPUSH PRN (07:25)
[2018-08-29] MEDS ORDERED: Lactated Ringers 1,000 ML IV SCH (07:30)
[2018-08-29] MEDS ORDERED: Oxytocin/Lactated Ringers 10 UNIT/1,000 ML BAG IV SCH ×3 (07:30→20:21)
--- NOTE | 2018-08-29 07:55 | PCM.LDHP ---
L&D History of Present Illness - General Date of Service: 08/29/18 Admit Problem/Dx: Patient Status Order with Admit Dx/Problem 08/29/18 07:25 Patient Status [ADT] Routine Admission Diagnosis/Problem Admission Diagnosis/Problem 39 weeks gestation of Source of Information: Patient History Limitations: Reports: No Limitations - History of Present Illness Introduction:: Pooja Barreto is a 22 year old at 39 weeks 1 day (WILMER 09/04/2018) by LMP consistent with 9 week ultrasound who presents for elective induction of labor. She reports that she has had some continued irregular contractions over the weekend but nothing that was extremely painful or regular causing her to come in for evaluation. She reports that she did have some mild bleeding after cervical exam in the office last week but this stopped after approximately 1 day. She has had continued mucous discharge but denies any leaking of fluid. She reports good movement. She reports that she plans to breast-feed and would like to avoid an epidural if possible. Timing/Duration: Reports: intermittent (Contractions but nothing regular or very painful) Location, : Reports: Lower back, Pelvic Quality: Reports: Pressure, Throbbing Severity: Moderate Improves with: Reports: None Worsens with: Reports: None Associated Symptoms: Reports: vaginal discharge (Mucus discharge), mild amount. Denies: vaginal bleeding, vaginal fluid Present Illness Comments:: Pooja Barreto is a 22-year-old at 39 weeks 1 day (WILMER 09/04/2018) by LMP consistent with 9 week ultrasound. She has had routine care since 9 weeks gestational age. Her has been complicated by: * GBS bacteriuria. Patient was treated on 06/13/2018 with amoxicillin and has had negative urine cultures since. She will be treated with ampicillin in labor. * Depression - patient with elevated EPDS throughout her and was started on Wellbutrin and Celexa 20 mg at various points during her but she stopped taking them due to the side effects. She is not currently on any medications and is not seeing any other providers for her mental health. * ancestry with negative hemoglobinopathy screen labs Blood type: O+ Antibody screen: Negative Urine culture: GBS bacteria with 100,000 CFU on 06/14/2018 Rubella status: Immune Hepatitis B surface antigen: Negative RPR: Negative HIV: Negative Gonorrhea: Negative Chlamydia: Negative Anatomy ultrasound: Normal anatomy, no abnormalities, posterior placenta, no previa One hour glucose tolerance test: 117 Second trimester hematocrit/hemoglobin: 36.9%/12.5 on 05/30/2018 Platelets: 230 on 05/30/2018 GBS status: Positive GBS bacteriuria on urine culture - Related Data Allergies/Adverse Reactions: Allergies Allergy/AdvReac Type Severity Reaction Status Date / Time No Known Allergies Allergy Verified 04/22/18 18:13 Home Medications: Home Meds Vits #93/Iron Fum/FA [ Formula Tablet] 1 tab PO DAILY 07/26/17 [History] Cyclobenzaprine [Flexeril] 10 mg PO Q6H PRN 04/22/18 [History] Past Medical History Other HEENT History: wears glasses [employer] History: Reports: : 2 Para: 1 Other OB/BYN History: Patient states sheis currently 20 weeks Psychiatric History: Reports: Anxiety, Depression Social & Family History - Family History Family Medical History: Noncontributory - Tobacco Use Smoking Status *Q: Never Smoker - Tobacco Core Measures Tobacco Use/Smoking Within Last 30 Days: No Smokeless Tobacco Use in Last 30 Days: No - Caffeine Use Caffeine Use: Reports: None - Alcohol Use Alcohol Use History: No - Recreational Drug Use Recreational Drug Use: No Drug Use in Last 12 Months: No - Living Situation & Occupation Living situation: Reports: Single, with Significant Other H&P Review of Systems - Review of Systems: Review Of Systems: See Below General: Denies: Fever, Chills, Malaise, Weakness, Fatigue HEENT: Denies: Headaches, Rhinitis, Post Nasal Drip, Sinus Congestion, Sore Throat, Visual Changes Pulmonary: Denies: Shortness of Breath, Wheezing, Pleuritic Chest Pain, Cough Cardiovascular: Denies: Chest Pain, Palpitations, Dyspnea on Exertion, Orthopnea Gastrointestinal: Denies: Abdominal Pain, Constipation, Diarrhea, Nausea, Vomiting Genitourinary: Denies: Dysuria, Frequency, Burning, Pain, Urgency Musculoskeletal: Reports: Back Pain (and pelvic pain with ) Skin: Denies: Rash, Lesions Psychiatric: Reports: Depression, Anxiety Hematologic/Lymphatic: Denies: Anemia L&D Exam - Exam Exam: See Below - OB Specific Contraction Intensity: Irritability Movement: Active Heart Tones: Present Heart Tones per Min: 130 (+15 x 15 accelerations, no decelerations) Heart Rate (FHR) Variability: Moderate (6-25 bmp) Presentation: Vertex Estimated Weight: 7-7.5 pounds by Lino's - Hartman Score Hartman Score Cervix Position: Midposition Hartman Score Consistency: Soft Hartman Score Effacement: 51-70% (70) Hartman Score Dilation: 3-4 cm (4 cm) Hartman Score 's Station: -2 Hartman Score Total: 8 - Exam General: Alert, Oriented HEENT: Conjunctiva Clear, EOMI Neck: Supple, Trachea Midline Lungs: Clear to Auscultation, Normal Respiratory Effort Cardiovascular: Regular Rate, Regular Rhythm GI/Abdominal Exam: Soft, Non-Tender, Other (Gravid). No: Distended, Guarding, Rigid Genitourinary: Normal external exam Back Exam: Normal Inspection, Full Range of Motion Extremities: Normal Inspection, Non-Tender, No Pedal Edema Skin: Warm, Dry, Intact Psychiatric: Alert, Normal Affect, Normal Mood - Problem List (1) Anxiety SNOMED Code(s): 99481471 ICD Code: F41.9 - ANXIETY DISORDER, UNSPECIFIED Status: Acute Current Visit: Yes (2) Depression SNOMED Code(s): 19122092 ICD Code: F32.9 - MAJOR DEPRESSIVE DISORDER, SINGLE EPISODE, UNSPECIFIED Status: Acute Current Visit: Yes (3) 39 weeks gestation of SNOMED Code(s): 82316655 ICD Code: Z3A.39 - 39 WEEKS GESTATION OF Status: Acute Current Visit: No (4) ancestry requiring population-specific screening for genetic disorder SNOMED Code(s): 57030370, 239602014, 309891794 ICD Code: Z13.79 - ENCNTR FOR OTH SCREENING FOR GENETIC AND CHROMSOML ANOMALIES Status: Acute Current Visit: No (5) GBS bacteriuria SNOMED Code(s): 90457047 ICD Code: R82.71 - BACTERIURIA Status: Acute Current Visit: No Problem List Initiated/Reviewed/Updated: Yes Orders Last 24hrs: Active Orders 24 hr Category Date Time Status Patient Status [ADT] Routine ADT 08/29/18 07:25 Ordered Activity as Tolerated [RC] PFP Care 08/29/18 07:25 Ordered Communication Order [RC] ASDIRECTED Care 08/29/18 07:25 Ordered Heart Tones [RC] ASDIRECTED Care 08/29/18 07:26 Ordered Non Stress Test [RC] PER UNIT ROUTINE Care 08/29/18 07:25 Ordered Notify Provider Vital Signs [RC] PRN Care 08/29/18 07:27 Ordered Notify Provider [RC] PFP Care 08/29/18 07:25 Ordered Notify Provider [RC] PRN Care 08/29/18 07:25 Ordered Peripheral IV Care [RC] . DIRECTED Care 08/29/18 07:26 Ordered Pump Management, Intrathecal [RC] ASDIRECTED Care 08/29/18 07:26 Ordered Vital Signs [RC] PER UNIT ROUTINE Care 08/29/18 07:25 Ordered Regular Diet [DIET] Diet 08/29/18 Breakfast Ordered CBC WITH AUTO DIFF [HEME] Routine Lab 08/29/18 07:25 Ordered RAPID PLASMA REAGIN,RPR [CHEM] Routine Lab 08/29/18 07:25 Ordered Acetaminophen [Tylenol] Med 08/29/18 07:25 Ordered 650 mg PO Q6H PRN Ampicillin 1 gm Med 08/29/18 07:30 Ordered Sodium Chloride 0.9% [Normal Saline] 100 ml IV Q4H Ampicillin 2 gm Med 08/29/18 07:25 Ordered Sodium Chloride 0.9% [Normal Saline] 100 ml IV ONETIME Lactated Ringers [Ringers, Lactated] 1,000 ml Med 08/29/18 07:30 Ordered IV ASDIRECTED Nalbuphine [Nubain] Med 08/29/18 07:25 Ordered 10 mg IVPUSH Q2H PRN Oxytocin/Lactated Ringers [Pitocin in LR 10 Units/1,000 Med 08/29/18 07:30 Ordered ML] 10 unit in 1,000 ml IV .CONTINUOUS Oxytocin/Lactated Ringers [Pitocin in LR 10 Units/1,000 Med 08/29/18 07:30 Ordered ML] 10 unit in 1,000 ml IV TITRATE Sodium Chloride 0.9% [Saline Flush] Med 08/29/18 07:25 Ordered 10 ml FLUSH ASDIRECTED PRN Electronic Heart Tones Ext w TOCO [WOMSER] Oth 08/29/18 07:25 Ordered Routine Electronic Heart Tones Internal [WOMSER] Per Unit Oth 08/29/18 07:25 Ordered Routine Peripheral IV Insertion Adult [OM.PC] Routine Oth 08/29/18 07:25 Ordered Resuscitation Status Routine Resus Stat 08/29/18 07:25 Ordered Medication Orders Acetaminophen (Tylenol) 650 mg PO Q6H PRN PRN Reason: Pain (Mild 1-3) and fever Ampicillin Sodium 2 gm/ Sodium (Chloride) 100 mls @ 200 mls/hr IV ONETIME ONE Stop: 08/29/18 08:29 Ampicillin Sodium 1 gm/ Sodium (Chloride) 100 mls @ 200 mls/hr IV Q4H ANGELA Lactated Ringer's (Ringers, Lactated) 1,000 mls @ 100 mls/hr IV ASDIRECTED ANGELA Oxytocin/Lactated Ringer's (Pitocin In Lr 10 Units/1,000 Ml) 10 unit in 1,000 mls @ 12 mls/hr IV TITRATE ANGELA; Protocol Oxytocin/Lactated Ringer's (Pitocin In Lr 10 Units/1,000 Ml) 10 unit in 1,000 mls @ 100 mls/hr IV .CONTINUOUS ANGELA Nalbuphine HCl (Nubain) 10 mg IVPUSH Q2H PRN PRN Reason: pain Sodium Chloride (Saline Flush) 10 ml FLUSH ASDIRECTED PRN PRN Reason: Keep Vein Open Assessment/Plan Comment:: Refer to observation for elective induction of labor Start Pitocin for induction of labor in 1-2 hours after patient has had first dose of antibiotics in for GBS bacteria Continuous monitoring Place IV and have Lactated Ringer's at 125 ml/hr May have small amounts of regular diet Activity as tolerated May have epidural as desired Plans to breast-feed after delivery Start on ampicillin 2 g now and have 1 g every 4 hours after for GBS prophylaxis Social work consult due to significant elevated EPDS score and to ensure safe environment at home Anticipate vaginal delivery unless otherwise indicated Wally Guthrie M.D. 8:01 AM 08/29/2018
[2018-08-29] MEDS ORDERED: Ampicillin 2 GM in Sodium Chloride 0.9% 100 ML IV ONE (08:00)
[2018-08-29] MEDS: Ampicillin 1 GM in Sodium Chloride 0.9% 100 ML IV SCH ×2 (11:46→16:15)
--- NOTE | 2018-08-29 13:51 | PCM.PNLD ---
Labor Progress Note - VS & Meds Vital Signs: Last Vital Signs Temp 36.4 C 08/29/18 07:44 Pulse 86 08/29/18 07:44 Resp 18 08/29/18 07:44 BP 121/76 08/29/18 07:44 Pulse Ox 100 08/29/18 07:44 Active Medications: Current Medications Acetaminophen (Tylenol) 650 mg PO Q6H PRN PRN Reason: Pain (Mild 1-3) and fever Ampicillin Sodium 1 gm/ Sodium (Chloride) 100 mls @ 200 mls/hr IV Q4H ANGELA Last Admin: 08/29/18 11:46 Dose: 200 mls/hr Lactated Ringer's (Ringers, Lactated) 1,000 mls @ 100 mls/hr IV ASDIRECTED ANGELA Last Admin: 08/29/18 07:58 Dose: 100 mls/hr Oxytocin/Lactated Ringer's (Pitocin In Lr 10 Units/1,000 Ml) 10 unit in 1,000 mls @ 12 mls/hr IV TITRATE ANGELA; Protocol Last Titration: 08/29/18 11:48 Dose: 6 munits/min, 36 mls/hr Oxytocin/Lactated Ringer's (Pitocin In Lr 10 Units/1,000 Ml) 10 unit in 1,000 mls @ 100 mls/hr IV .CONTINUOUS ANGELA Nalbuphine HCl (Nubain) 10 mg IVPUSH Q2H PRN PRN Reason: pain Sodium Chloride (Saline Flush) 10 ml FLUSH ASDIRECTED PRN PRN Reason: Keep Vein Open Discontinued Medications Ampicillin Sodium 2 gm/ Sodium (Chloride) 100 mls @ 200 mls/hr IV ONETIME ONE Stop: 08/29/18 08:29 Last Admin: 08/29/18 07:59 Dose: 200 mls/hr - Uterine Contractions Uterine Monitoring Mode: External [place] Contraction Frequency (min): 2.5-3 Contraction Duration (sec): 45-60 Contraction Intensity: Moderate Uterine Resting Tone: Soft - Monitoring Monitor Mode: Doppler/Auscultation Heart Rate (FHR) Baseline: 125 Heart Rate (FHR) Variability: Moderate (6-25 bmp) Accelerations: Present, 15x15 Decelerations: None Strip Review: Category I - Vaginal Exam Dilation (cm): 5 cm Effacement (Percent): 80 Station: -1 Cervical Position: Anterior Sterile Vaginal Exam Performed By: Wally Guthrie Vaginal Exam Comment: Artificial rupture membranes with [place] performed with return of clear fluid mixed with blood. Mother and infant tolerated procedure without difficulty. - Labor Progress (Free Text) Labor Progress: Continue ampicillin for GBS prophylaxis. Continue with Pitocin for induction of labor. Continuous monitoring. Patient may have epidural as desired. Anticipate vaginal delivery was otherwise indicated. Wally Guthrie M.D. 1:51 PM 08/29/2018
[2018-08-29] MEDS ORDERED: Lidocaine 1% 50 ML MDV ONE (16:07)
--- NOTE | 2018-08-29 20:16 | PCM.DEL ---
L & D Note - General Info Date of Service: 08/29/18 Mother's Due Date: 09/04/18 - Delivery Note Labor: Augmented by ARM, Induced by Oxytocin Delivery Outcome: Livebirth Delivery Method: Spontaneous Vaginal Delivery-Single Presentation: Right Occiput Anterior (ARSH) Nuchal Cord: Present (and not reduced prior to delivery) Prep: Povidone-Iodine (Betadine Anesthesia Type: Local Anesthetic: Lidocaine (Xylocaine) 1% Plain (8 mL) Amniotic Fluid Description: Clear Episiotomy Type: None Laceration: 1st Degree (midline periurethral, hemostatic, not repaired), 2nd Degree (left perineal, repaired with 3-0 Vicryl) Placenta: Intact, Spontaneous Cord: 3 Vessels Estimated Blood Loss: 450 Resuscitation Needed: No : Bulb Syringe, Stimulated, Warmed, [place] Used Provider: Wally Guthrie Score 1 min: 9 Score 5 min: 9 Second Stage Interventions: Reports: Pushing Effectively, Pushing, Pulls Own Legs Back Delivery Comments (Free Text/Narrative):: Stage I: Pooja Barreto was admitted for elective induction of labor. On admission her cervix was dilated to 4 cm. She was GBS bacteria positive and was treated with ampicillin. She received total of 3 doses prior to delivery. After her second dose of antibiotics she had artificial rupture membranes with clear fluid that was blood stained. She was started on Pitocin for augmentation of labor. Stage II: On 08/29/2018 she had a normal vaginal delivery of a live male infant at 1908. Apgars of 9 & 9. Weight of 3320 g (7 lbs 5.1 oz). Length of 21 inches. There was a single nuchal cord that was not reduced prior to delivery. Infant was delivered in ARSH position. The cord was doubly clamped and cut by father of the . was placed on mother's abdomen. Stage III: She had a spontaneous delivery of an intact placenta in [place] presentation. Three vessel cord. She was given pitocin and fundal massage. She had a second degree left perineal laceration that was repaired with 3-0 Vicryl. She had a first-degree midline periurethral laceration that was hemostatic and not repaired. Mom and baby were stable to recovery. EBL of 450 mL. Wally Guthrie MD 8:09 PM 08/29/2018 Induction Criteria - Hartman Score Hartman Score Dilation: 3-4 cm Hartman Score Effacement: 40-50% Hartman Score 's Station: -2 Hartman Score Consistency: Soft Hartman Score Cervix Position: Midposition Hartman Score Total: 7 Hartman Score Presenting Part: Reports: Cephalic - Induction Gestational Age >/= 39 wks: Yes Estimated Pelvis: Reports: Adequate Reassuring Monitoring Strip: Yes Absence of Tachy Systole: Yes - Augmentation Estimated Pelvis: Reports: Adequate Weight Estimated:: Reports: AGA Reassuring Monitoring Strip: Yes Absence of Tachy Systole: Yes - General Info Date of Service: 08/29/18 - Patient Data Vitals - Most Recent: Last Vital Signs Temp 36.4 C 08/29/18 07:44 Pulse 86 08/29/18 07:44 Resp 18 08/29/18 07:44 BP 121/76 08/29/18 07:44 Pulse Ox 100 08/29/18 07:44 Weight - Most Recent: 83.915 kg I&O - Last 24 Hours: Intake & Output 08/29/18 08/29/18 08/29/18 06:59 14:59 22:59 Intake Total 420 0 Balance 420 0 Lab Results Last 24 Hours: Laboratory Results - last 24 hr 08/29/18 08/29/18 Range/Units 08:10 08:10 WBC 8.13 (3.98-10.04) K/mm3 RBC 4.18 (3.98-5.22) M/mm3 Hgb 13.0 (11.2-15.7) gm/L Hct 37.5 (34.1-44.9) % MCV 89.7 (79.4-94.8) fl MCH 31.1 (25.6-32.2) pg MCHC 34.7 (32.2-35.5) g/dl RDW Std Deviation 41.8 (36.4-46.3) fL Plt Count 185 (182-369) K/mm3 MPV 10.6 (9.4-12.3) fl Neut % (Auto) 61.0 (34.0-71.1) % Lymph % (Auto) 28.2 (19.3-51.7) % [place] % (Auto) 10.1 (4.7-12.5) % Eos % (Auto) 0.4 L (0.7-5.8) Baso % (Auto) 0.1 (0.1-1.2) % Neut # (Auto) 4.96 (1.56-6.13) K/mm3 Lymph # (Auto) 2.29 (1.18-3.74) K/mm3 [place] # (Auto) 0.82 H (0.24-0.36) K/mm3 Eos # (Auto) 0.03 L (0.04-0.36) K/mm3 Baso # (Auto) 0.01 (0.01-0.08) K/mm3 RPR Non-reactive (NONREACTIVE) Med Orders - Current: Current Medications Acetaminophen (Tylenol) 650 mg PO Q6H PRN PRN Reason: Pain (Mild 1-3) and fever Ampicillin Sodium 1 gm/ Sodium (Chloride) 100 mls @ 200 mls/hr IV Q4H ANGELA Last Admin: 08/29/18 16:15 Dose: 200 mls/hr Lactated Ringer's (Ringers, Lactated) 1,000 mls @ 100 mls/hr IV ASDIRECTED ANGELA Last Admin: 08/29/18 07:58 Dose: 100 mls/hr Oxytocin/Lactated Ringer's (Pitocin In Lr 10 Units/1,000 Ml) 10 unit in 1,000 mls @ 12 mls/hr IV TITRATE ANGELA; Protocol Last Titration: 08/29/18 17:39 Dose: 0 munits/min, 0 mls/hr Oxytocin/Lactated Ringer's (Pitocin In Lr 10 Units/1,000 Ml) 10 unit in 1,000 mls @ 100 mls/hr IV .CONTINUOUS ANGELA Nalbuphine HCl (Nubain) 10 mg IVPUSH Q2H PRN PRN Reason: pain Last Admin: 08/29/18 17:15 Dose: 5 mg Sodium Chloride (Saline Flush) 10 ml FLUSH ASDIRECTED PRN PRN Reason: Keep Vein Open Discontinued Medications Ampicillin Sodium 2 gm/ Sodium (Chloride) 100 mls @ 200 mls/hr IV ONETIME ONE Stop: 08/29/18 08:29 Last Admin: 08/29/18 07:59 Dose: 200 mls/hr Lidocaine HCl (Xylocaine 1%) Confirm Administered Dose 50 ml .ROUTE .STK-MED ONE Stop: 08/29/18 16:08 - Problem List & Annotations (1) Anxiety SNOMED Code(s): 82179399 Code(s): F41.9 - ANXIETY DISORDER, UNSPECIFIED Status: Acute Current Visit: Yes (2) Depression SNOMED Code(s): 48740640 Code(s): F32.9 - MAJOR DEPRESSIVE DISORDER, SINGLE EPISODE, UNSPECIFIED Status: Acute Current Visit: Yes (3) 39 weeks gestation of SNOMED Code(s): 46978634 Code(s): Z3A.39 - 39 WEEKS GESTATION OF Status: Acute Current Visit: No (4) ancestry requiring population-specific screening for genetic disorder SNOMED Code(s): 28687209, 148380040, 195528265 Code(s): Z13.79 - ENCNTR FOR OTH SCREENING FOR GENETIC AND CHROMSOML ANOMALIES Status: Acute Current Visit: No (5) GBS bacteriuria SNOMED Code(s): 00511011 Code(s): R82.71 - BACTERIURIA Status: Acute Current Visit: No (6) Laceration of periurethral tissue with delivery, delivered SNOMED Code(s): 235131440, 317316792 Code(s): O71.89 - OTHER SPECIFIED OBSTETRIC TRAUMA Status: Acute Current Visit: Yes (7) Second degree laceration of perineum, delivered, current hospitalization SNOMED Code(s): 338706435, 730391872 Code(s): O70.1 - SECOND DEGREE PERINEAL LACERATION DURING DELIVERY Status: Acute Current Visit: No (8) Vaginal delivery SNOMED Code(s): 368058153 Code(s): O80 - ENCOUNTER FOR FULL-TERM UNCOMPLICATED DELIVERY Status: Acute Current Visit: No - Problem List Review Problem List Initiated/Reviewed/Updated: Yes - My Orders Last 24 Hours: My Active Orders 08/29/18 07:25 Patient Status [ADT] Routine Activity as Tolerated [RC] PFP Communication Order [RC] ASDIRECTED Non Stress Test [RC] PER UNIT ROUTINE Notify Provider [RC] PFP Notify Provider [RC] PRN Vital Signs [RC] 03,09,15,21 Acetaminophen [Tylenol] 650 mg PO Q6H PRN Nalbuphine [Nubain] 10 mg IVPUSH Q2H PRN Sodium Chloride 0.9% [Saline Flush] 10 ml FLUSH ASDIRECTED PRN Electronic Heart Tones Ext w TOCO [WOMSER] Routine Electronic Heart Tones Internal [WOMSER] Per Unit Routine Peripheral IV Insertion Adult [OM.PC] Routine Resuscitation Status Routine 08/29/18 07:26 Heart Tones [RC] ASDIRECTED Peripheral IV Care [RC] . DIRECTED Pump Management, Intrathecal [RC] ASDIRECTED 08/29/18 07:27 Notify Provider Vital Signs [RC] PRN 08/29/18 07:30 Lactated Ringers [Ringers, Lactated] 1,000 ml IV ASDIRECTED Oxytocin/Lactated Ringers [Pitocin in LR 10 Units/1,000 ML] 10 unit in 1,000 ml IV .CONTINUOUS Oxytocin/Lactated Ringers [Pitocin in LR 10 Units/1,000 ML] 10 unit in 1,000 ml IV TITRATE 08/29/18 12:00 Ampicillin 1 gm Sodium Chloride 0.9% [Normal Saline] 100 ml IV Q4H 08/29/18 19:56 Patient Status Manage Transfer [TRANSFER] Routine 08/29/18 Breakfast Regular Diet [DIET] - Plan Plan:: Admit to inpatient following normal spontaneous vaginal delivery Continue Pitocin per unit protocol following delivery of placenta and lactated Ringer's until tolerating regular diet Regular diet Vitals per unit routine Ibuprofen and Tylenol for pain control Assist with breast-feeding as needed Continue to monitor lochia Consider social work consult for elevated EPDS score in . Not on any medications. Anticipate discharge home on day #1 or #2 depending on patient's desire Wally Guthrie M.D. 8:09 PM 08/29/2018
[2018-08-29] MEDS ORDERED: Lanolin 100% Cream 7 GM Tube TOP PRN (20:21)
[2018-08-29] MEDS ORDERED: Benzocaine/Menthol 20%-0.5% Spray 56 GM Canister TOP PRN (20:21)
[2018-08-29] MEDS ORDERED: Witch Hazel Medicated Pads 40/Jar TOP PRN (20:21)
[2018-08-29] MEDS ORDERED: Hydrocortisone Acetate 25 MG Supp RECTAL PRN (20:21)
[2018-08-29] MEDS: Ibuprofen 600 MG Tab PO PRN (20:49)
[2018-08-30] MEDS: Ampicillin 1 GM in Sodium Chloride 0.9% 100 ML IV SCH (01:00)
--- NOTE | 2018-08-30 09:13 | PCM.SN ---
- Free Text/Narrative Note: Post Progress Note PPD # 1 Subjective: Doing well overall. Ambulating without difficulty. Lochia minimal. Voiding without difficulty. Tolerating regular diet without nausea or vomiting. Pain controlled with oral medications. Breast-feeding with minimal difficulty. Objective: Vitals: Vital Signs - 24 hr 08/29/18 08/30/18 08/30/18 23:36 03:45 07:51 Temperature 36.6 C 36.7 C 36.6 C Pulse, 84 101 H 89 Peripheral Respiratory 14 14 14 Rate Blood Pressure 103/64 98/69 112/60 O2 Sat by Pulse 98 98 100 Oximetry Physical Exam General: Alert and oriented, no acute distress Lungs: Clear to auscultation bilaterally Heart: Regular rate and rhythm Abdomen: Soft, minimal appropriate tenderness, non-distended, fundus midline, nontender, and at the umbilicus Extremities: No edema Laboratory Tests 08/29/18 08/29/18 08/30/18 Range/Units 08:10 08:10 05:10 WBC 8.13 16.68 H (3.98-10.04) K/mm3 RBC 4.18 3.60 L (3.98-5.22) M/mm3 Hgb 13.0 11.3 D (11.2-15.7) gm/L Hct 37.5 32.8 L (34.1-44.9) % MCV 89.7 91.1 (79.4-94.8) fl MCH 31.1 31.4 (25.6-32.2) pg MCHC 34.7 34.5 (32.2-35.5) g/dl RDW Std Deviation 41.8 41.0 (36.4-46.3) fL Plt Count 185 185 (182-369) K/mm3 MPV 10.6 11.1 (9.4-12.3) fl Neut % (Auto) 61.0 75.2 H (34.0-71.1) % Lymph % (Auto) 28.2 14.2 L (19.3-51.7) % [place] % (Auto) 10.1 10.2 (4.7-12.5) % Eos % (Auto) 0.4 L 0.1 L (0.7-5.8) Baso % (Auto) 0.1 0.1 (0.1-1.2) % Neut # (Auto) 4.96 12.56 H (1.56-6.13) K/mm3 Lymph # (Auto) 2.29 2.37 (1.18-3.74) K/mm3 [place] # (Auto) 0.82 H 1.70 H (0.24-0.36) K/mm3 Eos # (Auto) 0.03 L 0.01 L (0.04-0.36) K/mm3 Baso # (Auto) 0.01 0.01 (0.01-0.08) K/mm3 Manual Slide Review Abnormal smear RPR Non-reactive (NONREACTIVE) ASSESSMENT: 22-year-old female 002 s/p normal vaginal delivery PPD #1, complicated by depression and ancestry with normal hemoglobinopathy screening PLAN: Doing well Breast-feeding with minimal difficulty. Assist as needed Lochia minimal. Continue to monitor for appropriate lochia. Continue routine care Consider social work consults with elevated EPDS score in clinic throughout her Anticipated drop in hematocrit following vaginal delivery from 37.5 down to 32.8. Will continue to monitor vital signs. Anticipate discharge home tomorrow Wally Guthrie MD 9:09 AM 08/30/2018
[2018-08-30] MEDS: Prenatal Multivitamin with Calcium/Folic Acid/Iron Tab PO SCH (09:36)
[2018-08-30] MEDS: Docusate Sodium 100 MG Cap PO PRN ×2 (09:36→21:18)
[2018-08-30] MEDS: Ibuprofen 600 MG Tab PO PRN ×3 (09:37→21:18)
--- NOTE | 2018-08-31 07:47 | PCM.SN ---
- Free Text/Narrative Note: Post Progress Note PPD # 2 Subjective: Doing well overall. Ambulating without difficulty. Lochia minimal. Voiding without difficulty. Tolerating regular diet without nausea or vomiting. Pain controlled with oral medications. Reports having some soreness with getting up and moving around. Breast-feeding with minimal difficulty. Denies any headaches, vision changes or right upper quadrant pain. Objective: Vitals: Vital Signs - 24 hr 08/30/18 08/30/18 08/30/18 07:51 15:03 21:18 Temperature 36.6 C 36.4 C 36.6 C Pulse, 89 86 73 Peripheral Respiratory 14 14 16 Rate Blood Pressure 112/60 109/93 H 116/75 O2 Sat by Pulse 100 99 100 Oximetry 08/31/18 03:17 Temperature 37.2 C Pulse, 77 Peripheral Respiratory 14 Rate Blood Pressure 121/91 H O2 Sat by Pulse 100 Oximetry Physical Exam General: Alert and oriented, no acute distress Lungs: Clear to auscultation bilaterally Heart: Regular rate and rhythm Abdomen: Soft, minimal appropriate tenderness, non-distended, fundus midline, nontender, and 2 fingerbreadths below the umbilicus Extremities: No edema ASSESSMENT: 22-year-old female 002 s/p normal vaginal delivery PPD #2, mild elevations of diastolic blood pressures overnight without evidence of preeclampsia severe features, complicated by depression and ancestry with normal hemoglobinopathy screening PLAN: * Doing well * Breast-feeding with minimal difficulty. Assist as needed * Lochia minimal. Continue to monitor for appropriate lochia. * Continue routine care * Social work consult done for history of elevated EPDS score in clinic throughout her . Patient declines medications at this time. Had a discussion yesterday afternoon and this morning with patient about concerning signs and symptoms that she should contact a medical care provider for and she states an understanding. We will have close follow-up with her returning to clinic next week and continue with close follow-up after discharge home. * Patient with mild elevations of diastolic blood pressure over night. We will follow up on her blood pressure next week. No signs or symptoms of preeclampsia with severe features. * Anticipate discharge home today Wally Guthrie MD 7:43 AM 08/31/2018
--- NOTE | 2018-08-31 08:10 | PCM.DCSUM1 ---
Discharge Summary - Hospital Course Free Text/Narrative:: - Delivery Note Labor: Augmented by ARM, Induced by Oxytocin Delivery Outcome: Livebirth Delivery Method: Spontaneous Vaginal Delivery-Single Presentation: Right Occiput Anterior (ARSH) Nuchal Cord: Present (and not reduced prior to delivery) Prep: Povidone-Iodine (Betadine Anesthesia Type: Local Anesthetic: Lidocaine (Xylocaine) 1% Plain (8 mL) Amniotic Fluid Description: Clear Episiotomy Type: None Laceration: 1st Degree (midline periurethral, hemostatic, not repaired), 2nd Degree (left perineal, repaired with 3-0 Vicryl) Placenta: Intact, Spontaneous Cord: 3 Vessels Estimated Blood Loss: 450 Resuscitation Needed: No : Bulb Syringe, Stimulated, Warmed, [place] Used Provider: Wally Guthrie Score 1 min: 9 Score 5 min: 9 Second Stage Interventions: Reports: Pushing Effectively, Pushing, Pulls Own Legs Back Delivery Comments (Free Text/Narrative):: Stage I: Pooja Barreto was admitted for elective induction of labor. On admission her cervix was dilated to 4 cm. She was GBS bacteria positive and was treated with ampicillin. She received total of 3 doses prior to delivery. After her second dose of antibiotics she had artificial rupture membranes with clear fluid that was blood stained. She was started on Pitocin for augmentation of labor. Stage II: On 08/29/2018 she had a normal vaginal delivery of a live male at 1908. Apgars of 9 & 9. Weight of 3320 g (7 lbs 5.1 oz). Length of 21 inches. There was a single nuchal cord that was not reduced prior to delivery. was delivered in ARSH position. The cord was doubly clamped and cut by father of the infant. Infant was placed on mother's abdomen. Stage III: She had a spontaneous delivery of an intact placenta in [place] presentation. Three vessel cord. She was given pitocin and fundal massage. She had a second degree left perineal laceration that was repaired with 3-0 Vicryl. She had a first-degree midline periurethral laceration that was hemostatic and not repaired. Mom and baby were stable to recovery. EBL of 450 mL. HPI Initial Comments: - Delivery Note Labor: Augmented by ARM, Induced by Oxytocin Delivery Outcome: Livebirth Infant Delivery Method: Spontaneous Vaginal Delivery-Single Presentation: Right Occiput Anterior (ARSH) Nuchal Cord: Present (and not reduced prior to delivery) Prep: Povidone-Iodine (Betadine Anesthesia Type: Local Anesthetic: Lidocaine (Xylocaine) 1% Plain (8 mL) Amniotic Fluid Description: Clear Episiotomy Type: None Laceration: 1st Degree (midline periurethral, hemostatic, not repaired), 2nd Degree (left perineal, repaired with 3-0 Vicryl) Placenta: Intact, Spontaneous Cord: 3 Vessels Estimated Blood Loss: 450 Resuscitation Needed: No : Bulb Syringe, Stimulated, Warmed, [place] Used Provider: Wally Guthrie Score 1 min: 9 Score 5 min: 9 Second Stage Interventions: Reports: Pushing Effectively, Pushing, Pulls Own Legs Back Delivery Comments (Free Text/Narrative):: Stage I: Pooja Barreto was admitted for elective induction of labor. On admission her cervix was dilated to 4 cm. She was GBS bacteria positive and was treated with ampicillin. She received total of 3 doses prior to delivery. After her second dose of antibiotics she had artificial rupture membranes with clear fluid that was blood stained. She was started on Pitocin for augmentation of labor. Stage II: On 08/29/2018 she had a normal vaginal delivery of a live male infant at 1908. Apgars of 9 & 9. Weight of 3320 g (7 lbs 5.1 oz). Length of 21 inches. There was a single nuchal cord that was not reduced prior to delivery. Infant was delivered in ARSH position. The cord was doubly clamped and cut by father of the . was placed on mother's abdomen. Stage III: She had a spontaneous delivery of an intact placenta in [place] presentation. Three vessel cord. She was given pitocin and fundal massage. She had a second degree left perineal laceration that was repaired with 3-0 Vicryl. She had a first-degree midline periurethral laceration that was hemostatic and not repaired. Mom and baby were stable to recovery. EBL of 450 mL. Brief History: - Delivery Note. Labor: Augmented by ARM, Induced by Oxytocin. Delivery Outcome: Livebirth. Delivery Method: Spontaneous Vaginal Delivery-Single. Presentation: Right Occiput Anterior (ARSH). Nuchal Cord : Present (and not reduced prior to delivery). Prep: Povidone-Iodine ( Betadine. Anesthesia Type: Local. Anesthetic: Lidocaine (Xylocaine) 1% Plain ( 8 mL). Amniotic Fluid Description: Clear. Episiotomy Type: None. Laceration: 1st Degree (midline periurethral, hemostatic, not repaired), 2nd Degree (left perineal, repaired with 3-0 Vicryl). Placenta: Intact, Spontaneous. Cord: 3 Vessels. Estimated Blood Loss: 450. Resuscitation Needed: No. : Bulb Syringe, Stimulated, Warmed, [place] Used. Provider: Wally Guthrie. Score 1 min: 9. Score 5 min: 9. Second Stage Interventions: Reports: Pushing Effectively, Pushing, Pulls Own Legs Back. Delivery Comments ( Free Text/Narrative):: Stage I: Pooja Barreto was admitted for elective induction of labor. On admission her cervix was dilated to 4 cm. She was GBS bacteria positive and was treated with ampicillin. She received total of 3 doses prior to delivery. After her second dose of antibiotics she had artificial rupture membranes with clear fluid that was blood stained. She was started on Pitocin for augmentation of labor. Stage II: On 08/29/2018 she had a normal vaginal delivery of a live male infant at 1908. Apgars of 9 & 9. Weight of 3320 g (7 lbs 5.1 oz). Length of 21 inches. There was a single nuchal cord that was not reduced prior to delivery. was delivered in ARSH position. The cord was doubly clamped and cut by father of the . was placed on mother's abdomen. Stage III: She had a spontaneous delivery of an intact placenta in Praveen presentation. Three vessel cord. She was given pitocin and fundal massage. She had a second degree left perineal laceration that was repaired with 3-0 Vicryl. She had a first-degree midline periurethral laceration that was hemostatic and not repaired. Mom and baby were stable to recovery. EBL of 450 mL. Diagnosis: Stroke: No - Discharge Data Discharge Date: 08/31/18 Discharge Disposition: Home, Self-Care 01 Condition: Good - Discharge Diagnosis/Problem(s) (1) Anxiety SNOMED Code(s): 13103811 ICD Code: F41.9 - ANXIETY DISORDER, UNSPECIFIED Status: Acute Current Visit: Yes (2) Depression SNOMED Code(s): 54284724 ICD Code: F32.9 - MAJOR DEPRESSIVE DISORDER, SINGLE EPISODE, UNSPECIFIED Status: Acute Current Visit: Yes (3) 39 weeks gestation of SNOMED Code(s): 86664988 ICD Code: Z3A.39 - 39 WEEKS GESTATION OF Status: Acute Current Visit: No (4) ancestry requiring population-specific screening for genetic disorder SNOMED Code(s): 20750412, 953828699, 345150848 ICD Code: Z13.79 - ENCNTR FOR OTH SCREENING FOR GENETIC AND CHROMSOML ANOMALIES Status: Acute Current Visit: No (5) GBS bacteriuria SNOMED Code(s): 38569393 ICD Code: R82.71 - BACTERIURIA Status: Acute Current Visit: No (6) Laceration of periurethral tissue with delivery, delivered SNOMED Code(s): 051537547, 227872689 ICD Code: O71.89 - OTHER SPECIFIED OBSTETRIC TRAUMA Status: Acute Current Visit: Yes (7) Second degree laceration of perineum, delivered, current hospitalization SNOMED Code(s): 912501883, 193079706 ICD Code: O70.1 - SECOND DEGREE PERINEAL LACERATION DURING DELIVERY Status : Acute Current Visit: No (8) Vaginal delivery SNOMED Code(s): 545968189 ICD Code: O80 - ENCOUNTER FOR FULL-TERM UNCOMPLICATED DELIVERY Status: Acute Current Visit: No - Patient Summary/Data Complications: None Consults: Consultations 08/30/18 10:38 Consult to Case Management/Senior Bioinformatics Specialist [CONS] Routine Hospital Course: Pooja Barreto was admitted for elective induction of labor. On admission her cervix was dilated to 4 cm. She was GBS bacteriuria positive and was treated with ampicillin. She received a total of 3 doses prior to delivery. She was given pitocin for augmentation. She had artificial rupture of membranes with clear fluid that was blood stained after she had her second dose of antibiotics. She progressed to complete and began pushing. On 08/29/2018 she had a normal vaginal delivery of a live male infant at 1908. Apgars of 9 and 9. Weight of 3320 g (7 pounds 5.1 ounces). Her course was uneventful. Her pain was well controlled and she had minimal lochia. She was ambulating, tolerating a regular diet and voiding normally. She was breast- feeding with minimal difficulty. She was afebrile and her hematocrit was 32.8 on day #1. She desired to be discharged home on the morning of PPD # 2. Her blood type is O+. - Patient Instructions Diet: Regular Diet as Tolerated Activity: Apply Ice, As Tolerated Activity, Other: Nothing in the vagina for 6 weeks Driving: May Drive Today Showering/Bathing: May Shower Notify Provider of: Fever, Increased Pain, Swelling and Redness, Drainage, Nausea and/or Vomiting Other/Special Instructions: Please contact your physician's office if you have heavy vaginal bleeding enough to soak a pad in less than an hour for several hours. Contact your physician's office if you have severe headache that does not resolve with medication, changes in your vision with black spots or flashes of light or severe pain in your upper abdomen. Monitor for any signs of an infection in the breasts with severe pain or redness of the breast. - Discharge Plan *PRESCRIPTION DRUG MONITORING PROGRAM REVIEWED*: Not Applicable *COPY OF PRESCRIPTION DRUG MONITORING REPORT IN PATIENT TOMI: Not Applicable Home Medications: Home Meds Vits #93/Iron Fum/FA [ Formula Tablet] 1 tab PO DAILY 07/26/17 [History] Cyclobenzaprine [Flexeril] 10 mg PO Q6H PRN 04/22/18 [History] Acetaminophen [Tylenol] 650 mg PO Q6H PRN tablet 08/31/18 [Rx] Benzocaine/Menthol [Dermoplast Pain Relief [place]] 1 spray TOP ASDIRECTED PRN canister 08/31/18 [Rx] Docusate Sodium [Colace] 100 mg PO BID PRN cap 08/31/18 [Rx] Hydrocortisone Acetate [Anucort-HC] 25 mg RECTAL BID PRN supp 08/31/18 [Rx] Ibuprofen [Motrin] 600 mg PO Q6H PRN tablet 08/31/18 [Rx] Lanolin [Lansinoh HPA] 1 applic TOP ASDIRECTED PRN tube 08/31/18 [Rx] Witch Jeniffer [Tucks] 1 pad TOP ASDIRECTED PRN pad 08/31/18 [Rx] Patient Handouts: Home Care Instructions for Mom, Vaginal Delivery, Care After , Care of a Perineal Tear Referrals: Wally Guthrie MD [Primary Care Provider] - (Follow-up in 1 week for blood pressure check and monitoring of depression.) - Discharge Summary/Plan Comment DC Time >30 min.: No - Patient Data Vitals - Most Recent: Last Vital Signs Temp 37.2 C 08/31/18 03:17 Pulse 77 08/31/18 03:17 Resp 14 08/31/18 03:17 BP 121/91 H 08/31/18 03:17 Pulse Ox 100 08/31/18 03:17 Weight - Most Recent: 83.915 kg I&O - Last 24 hours: Intake & Output 08/30/18 08/31/18 08/31/18 22:59 06:59 14:59 Intake Total 590 Balance 590 Med Orders - Current: Current Medications Acetaminophen (Tylenol) 650 mg PO Q6H PRN PRN Reason: mild pain or fever Benzocaine/Menthol (Dermoplast Pain Relief [place]) 0 gm TOP ASDIRECTED PRN PRN Reason: Perineal Comfort Measure Last Admin: 08/29/18 20:48 Dose: 1 canister Docusate Sodium (Colace) 100 mg PO BID PRN PRN Reason: Constipation Last Admin: 08/30/18 21:18 Dose: 100 mg Emollient Ointment (Lansinoh Hpa) 0 gm TOP ASDIRECTED PRN PRN Reason: Sore Nipples Hydrocortisone Acetate (Anucort-Hc) 25 mg RECTAL BID PRN PRN Reason: Hemorrhoid pain Oxytocin/Lactated Ringer's (Pitocin In Lr 10 Units/1,000 Ml) 10 unit in 1,000 mls @ 100 mls/hr IV TITRATE ANGELA; Protocol Ibuprofen (Motrin) 600 mg PO Q6H PRN PRN Reason: Mild pain or fever Last Admin: 08/30/18 21:18 Dose: 600 mg Prenat Multivit/Cut Off Saw Operator Metal/Iron/Folic Ac ( Plus Iron) 1 each PO DAILY ANGELA Last Admin: 08/30/18 09:36 Dose: 1 each Witch Jeniffer (Tucks) 1 pad TOP ASDIRECTED PRN PRN Reason: Perineal Comfort Measure Last Admin: 08/29/18 20:48 Dose: 1 tub Discontinued Medications Acetaminophen (Tylenol) 650 mg PO Q6H PRN PRN Reason: Pain (Mild 1-3) and fever Ampicillin Sodium 2 gm/ Sodium (Chloride) 100 mls @ 200 mls/hr IV ONETIME ONE Stop: 08/29/18 08:29 Last Admin: 08/29/18 07:59 Dose: 200 mls/hr Ampicillin Sodium 1 gm/ Sodium (Chloride) 100 mls @ 200 mls/hr IV Q4H ANGELA Last Admin: 08/30/18 01:00 Dose: Not Given Lactated Ringer's (Ringers, Lactated) 1,000 mls @ 100 mls/hr IV ASDIRECTED ANGELA Last Admin: 08/29/18 07:58 Dose: 100 mls/hr Oxytocin/Lactated Ringer's (Pitocin In Lr 10 Units/1,000 Ml) 10 unit in 1,000 mls @ 12 mls/hr IV TITRATE ANGELA; Protocol Last Titration: 08/29/18 17:39 Dose: 0 munits/min, 0 mls/hr Oxytocin/Lactated Ringer's (Pitocin In Lr 10 Units/1,000 Ml) 10 unit in 1,000 mls @ 100 mls/hr IV .CONTINUOUS ANGELA Lidocaine HCl (Xylocaine 1%) Confirm Administered Dose 50 ml .ROUTE .STK-MED ONE Stop: 08/29/18 16:08 Last Admin: 08/29/18 19:30 Dose: 50 ml Nalbuphine HCl (Nubain) 10 mg IVPUSH Q2H PRN PRN Reason: pain Last Admin: 08/29/18 17:15 Dose: 5 mg Sodium Chloride (Saline Flush) 10 ml FLUSH ASDIRECTED PRN PRN Reason: Keep Vein Open
[2018-08-31] MEDS: Ibuprofen 600 MG Tab PO PRN (10:37)
[2018-08-31] MEDS: Docusate Sodium 100 MG Cap PO PRN (10:39)
[2018-08-31] MEDS: Prenatal Multivitamin with Calcium/Folic Acid/Iron Tab PO SCH (10:39)
[2018-08-31 15:00] VITALS: BP 115/69
== END 2018-08-31 13:52 | disposition home or self-care (01) | DRG 807 ==
LOC: JD.OB 07:19 → OBSVTOIN 19:08 → JD.OB 19:08
PROVIDERS: ADMIT Obstetrics & Gynecology; ATTEND Obstetrics & Gynecology
PROC: 10E0XZZ Delivery of Products of Conception, External Approach (ICD-10-PCS; principal; 2018-08-29)
PROC: 0KQM0ZZ Repair Perineum Muscle, Open Approach (ICD-10-PCS; 2018-08-29)
PROC: 10907ZC Drainage of Amniotic Fluid, Therapeutic from Products of Conception, Via Natural or Artificial Opening (ICD-10-PCS; 2018-08-29)
PROC: 3E033VJ Introduction of Other Hormone into Peripheral Vein, Percutaneous Approach (ICD-10-PCS; 2018-08-29)
DX: O99.824 Streptococcus B carrier state complicating childbirth (principal); Z37.0 Single live birth; O69.81X0 Labor and delivery complicated by cord around neck, without compression, not applicable or unspecified; O99.344 Other mental disorders complicating childbirth; O70.1 Second degree perineal laceration during delivery; O71.89 Other specified obstetric trauma; Z3A.39 39 weeks gestation of pregnancy; F32.9 Major depressive disorder, single episode, unspecified; F41.9 Anxiety disorder, unspecified; Z13.79 Encounter for other screening for genetic and chromosomal anomalies
CPT/HCPCS: 36415; 59025; 59409; 85025; 86592; A9270-GY; J0290; J2001; J2300; J2590; J7030; J7120